=== PATIENT | male | born 1960 | race Caucasian/White ===

== ENCOUNTER 2020-08-21 00:25 | Emergency (ER) | payer MEDICAID, SELFPAY ==
[2020-08-21] VITALS (9 sets, daily range): BP systolic 118–143; BP diastolic 74–92; PULSE 71–90; RESP 18–28; TEMP 36.6–37.3; O2SAT 83–96; BMI 33.3
--- NOTE | ~2020-08-21 | XR_ITS ---
EXAMINATION: XR CHEST CLINICAL INFORMATION: Shortness of breath, hypoxia. Rule out asthma. COMPARISON: 06/01/2019 TECHNIQUE: Frontal view of the chest was obtained. FINDINGS: The lungs are well expanded. Diffuse bronchial wall thickening is noted. There is right upper lung airspace opacity. This is new from prior. No pleural effusion or pneumothorax. The cardiomediastinal silhouette is within normal limits. XR/XR chest 1V IMPRESSION: Bronchial wall thickening is present which can be seen in the setting of asthma. The right upper lobe consolidation is concerning for superimposed pneumonia. Follow-up to resolution.
[2020-08-21] MEDS: methylPREDNISolone Sod Succ 125 MG/2 ML VIAL IVPUSH (01:03)
[2020-08-21 01:12] LABS: Basophils Percent Auto 0.2 % (0-2); Hemoglobin 17.8 g/dl (14.0-18.0); Imm Gran Abs Auto 0.06 X10*3/uL (0.00-0.03); Imm Gran Pct Auto 0.3 % (0.0-0.4); Lymphocytes Absolute Auto 0.5 X10*3/uL (1.2-4.9); MANUAL DIFF FLAG SCAN; Mean Corpuscular HGB Conc 31.9 g/dl (31.0-36.0); Mean Corpuscular Hemoglobin 25.8 pg (27.0-33.0); Mean Corpuscular Volume 80.9 fL (80-98); Mean Platelet Volume 9.8 fL (9.4-12.4); Monocytes Absolute Auto 0.9 X10*3/uL (0.1-1.2); Monocytes Percent Auto 5.1 % (2-11); Neutrophils Absolute Auto 15.8 X10*3/uL (2.0-8.3); Neutrophils Percent Auto 91.4 % (45-73); Platelet Count 287 X10*3/uL (160-400); Red Cell Distribution Width 17.3 % (11.0-16.0); SCAN SMEAR FLAG 1; White Blood Count 17.3 X10*3/uL (4.8-10.8)
[2020-08-21 01:15] LABS: VBG Base Excess 12.1 mmol/L; VBG HCO3 39 mmol/L (22-26); VBG pCO2 54 mmHg; VBG pH 7.46 (7.32-7.43); VBG pO2 65 mmHg
[2020-08-21 01:15] LABS: Venous Blood Gas Refer to POC result
[2020-08-21] MEDS: Albuterol Sulfate (0.083%) 2.5 MG/3 ML VIAL.NEB 10 MG INHALE (01:20)
[2020-08-21 01:21] LABS: INTERNATIONAL NORM RATIO 1.7 (0.9-1.1); Prothrombin Time 19.7 SEC (10.8-13.0)
[2020-08-21 01:22] LABS: Partial Thromboplastin Time 41.7 SEC (24.1-38.0)
[2020-08-21 01:23] LABS: Hematocrit 55.8 % (42-52)
[2020-08-21 01:26] LABS: COVID-19 Test Negative (Negative); IDNOW Serial# 9DD0AD1C
[2020-08-21 01:29] LABS: Lactic Acid 1.5 mmol/L (0.5-2.0)
[2020-08-21 01:30] LABS: SLIDE REVIEW VERIFIED
[2020-08-21] MEDS: Magnesium Sulfate/H2O 2 GM/50 ML PIGGYBACK IV (01:32)
--- NOTE | 2020-08-21 01:34 | PC.NURSE ---
pt came in with sob, cough with moderate respiratory distress. Respiratory called, respiratory treatment. labs drawn, blood cultures collected. Pt is medicated per Jun. Covid swab collected. 2 IV lines placed. pt reports feeling better after breathing treatment.
[2020-08-21 01:35] LABS: Alanine Aminotransferase 14 U/L (0-40); Albumin Level 2.8 g/dL (3.5-5.0); Alkaline Phosphatase 262 U/L (39-117); Anion Gap 15 (12-20); Aspartate Amino Transferase 27 U/L (5-37); Bilirubin Total 3.1 mg/dL (0.0-1.0); Blood Urea Nitrogen 38 mg/dL (9-16); Carbon Dioxide 35 mmol/L (22-29); Chloride 87 mmol/L (96-108); Creatinine Clr Calc Pharmacy 77.9; Estimated Glomerular Filt Rate > 60; Glucose Random 180 mg/dL (60-115); Lipase 35 U/L (8-78); Potassium 3.9 mmol/L (3.3-5.1); Sodium 133 mmol/L (135-145); Total Protein 6.1 g/dL (6.5-8.0)
[2020-08-21 01:40] LABS: Troponin-I High Sensitivity 37.5 ng/L (<3.5-35.0)
--- NOTE | 2020-08-21 01:43 | ED_ITS ---
HPI - Asthma General Chief Complaint: Asthma Stated Complaint: Sob/Asthma Time Seen by Provider: 08/21/20 00:30 Source: patient Mode of arrival: ambulatory Limitations: language barrier (Patient is Moroccan-speaking only, the educational interpreter was used to obtain information) History of Present Illness HPI Narrative: 60-year-old male who presents emergency department for evaluation of cough, right-sided stabbing pain, fever and shortness of breath times 10 days. Patient states that he has a history of asthma. He states that his asthma has been getting progressively worse over the past 8-10 days. States this evening, he was very short of breath. He complains right-sided chest pain which is stabbing pain which is worse with breathing and coughing. He states that he has a cough which is nonproductive. He has subjective fever and chills at home. He denied nausea, vomiting or diarrhea. He denied myalgias or arthralgias. He states that he has not had a COVID-19 infection any did receive his 2nd COVID-19 vaccination 1 week prior. On presentation to the emergency department his O2 saturation was 80-83% on room air any appear to be in moderate respiratory distress. Related Data Allergies Allergy/AdvReac Type Severity Reaction Status Date / Time No Known Allergies Allergy Unverified 01/07/20 16:51 Review of Systems Review of Systems: Yes all other systems are reviewed and are negative [facility] Past Medical History [facility] Narrative: Patient has history of asthma and hypertension. The patient states that he smokes 1 pack of cigarettes per day times many years. Denies alcohol and drug use. Medical History Asthma HTN (hypertension) Social History Social History Alcohol intake: never Smoking Status: Current every day smoker Use of substances other than those prescribed or required for medical reasons: No Advance Directives: No Advance Directives Information Provided: No Physical Exam Vital Signs: Vital Signs: Last Vital Signs Temp 99.2 F 08/21/20 02:58 Pulse 74 08/21/20 04:33 Resp 18 08/21/20 04:02 BP 143/90 H 08/21/20 04:33 Pulse Ox 94 08/21/20 04:33 Body Mass Index 33.3 Const: General: cooperative and in distress moderate (Respiratory) Orientation/consciousness: oriented to person and oriented to place Limitations: no limitations HENMT: Head: Yes normal to inspection, Yes normocephalic and Yes atraumatic Ears: external ears normal General nose exam: Normal external nose present Face and sinus: Yes normal facial exam Mouth: Normal oral and palatal mucosa present Throat: Yes posterior oropharynx normal Eyes: Periorbital: periorbital findings normal Eyelids: Yes eyelids normal Conjunctivae: conjunctivae normal Sclerae: sclerae normal Corneas: corneas normal Pupils: Equal, round and reactive pupils present Direct Ophthalmoscopy: normal light reflex Neck: Neck: Yes full ROM, Yes no lymphadenopathy, Yes no meningeal signs, Yes trachea midline and Yes supple Chest: Chest palpation & inspection: normal inspection of the chest and normal palpation of entire chest wall Resp: Effort & Inspection: able to speak in complete sentences, labored, pursed lip breathing and tachypneic Auscultation: rhonchi (Diffuse) and wheezes (Diffuse) Cardio: Rate: regular rate Rhythm: regular rhythm Heart sounds: S1 normal heart sound present, S2 normal heart sound present and no murmurs GI: Inspection: Yes normal to inspection Palpation (GI): Soft to palpation, nontender, no guarding, not rigid and No hepatosplenomegaly present : General: Yes no CVA tenderness Back/Spine/Pelvis: Back: no CVA tenderness Cervical Spine: normal cervical lordosis Thoracic/Lumbar Spine: thoracic and lumbar spine normal to inspection Skin: Lesions: no lesions Rashes: no rashes Wounds: no wounds Neuro: General: oriented to person, oriented to place and no meningeal signs Cranial nerves: Yes CN's II-XII intact bilaterally and Yes Equal, round and reactive pupils present Cognition (Neuro): normal cognition Motor exam (neuro): 5/5 motor strength present throughout Extrem: General: Yes normal to inspection and Yes full ROM Psych: Appearance: well kempt Mental Status: mental status grossly normal Speech and movement: Normal speech and movement present Affect: normal affect Attitude: cooperative Thought process: Normal thought process present Thought content: Normal thought content present Course Course Course Narrative: 60-year-old male who presents emergency department for evaluation of 8-10 days of shortness of breath, subjective fever, chills, nonproductive cough and right-sided chest pain. On presentation the patient was in moderate respiratory distress with labored breathing, pursed lip breathing, tachypnea and O2 saturations of 80-83% on room air. The patient was placed on 5 L via nasal cannula with improvement of his O2 saturation to 93%. His lung exam revealed diffuse rhonchi and diffuse wheezing. He was ordered to get an hour long albuterol nebulizer, magnesium 2 g IV, and Solu-Medrol 125 mg IV. 0214: Laboratory evaluation revealed that he may be hemoconcentrated with an elevated H&H of 17.855.8 with an elevated BUN of 38 with a normal creatinine of 1.1, therefore I ordered normal saline IV x2 L. venous pH was 7.46 which is consistent with respiratory alkalosis secondary to his asthma exacerbation. The patient's INR was slightly elevated at 1.7, lactic acid was normal at 1.5. COVID-19 test was negative. Patient's 12 EKG revealed an old inferior NC with a right bundle-branch block. His 1st high sensitivity troponin was elevated at 37.5 (3.5-35) therefore I ordered a 3 hour troponin at 4:00 a.m. I suspect that the patient may have a type II myocardial injury secondary to his hypoxia. Chest x-ray was reviewed by me, the patient appears to have a right upper lobe infiltrate and a subtle right lower lobe infiltrate. Blood cultures were obtained. The patient was ordered to get ceftriaxone 1 g IV and azithromycin 500 mg IV. The patient did improve with the hour long albuterol nebulizer treatment and magnesium IV. The patient still remains hypoxic and requires oxygen therapy, I asked the respiratory therapist to put him on the lowest concentration of oxygen via Ventimask. 0229: The patient remained hypoxic on a Venti mask, he was placed on high-flow oxygen 100% at 60 liters/minute. His O2 saturation is 93%, I will check an ABG after 20 minutes of treatment with high-flow oxygen. 0258: ABG on high-flow oxygen 100%, 60 liters/minute: 7.47/50/96/36. The patient has respiratory alkalosis with relatively low PO2 given his high flow oxygen setting. The patient will be placed on CPAP and converted to BiPAP if needed. I am concerned that the patient may deteriorate and eventually required intubation. Also, we do not have any ICU beds at this time for CPAP/BiPAP 0408: I attempted to transfer the patient to [facility] in [place] and [facility] in [place] and neither facility had ICU beds. I did discuss the patient with the [place] transfer line and the patient was accepted at [facility] in [facility]. The patient is currently on CPAP pressure of 12, no PEEP and his O2 saturation is 97% and he is resting comfortably. The patient will be transferred by [facility] ambulance, the [facility] physician is . 0452: The patient's repeat 3 hour high sensitive troponin #2 was 35.7 compared to troponin #1. Of 37.5. This did not go up by greater than 50% suggesting that the patient has not had a significant myocardial injury and may have had a ?troponin leak ?type 2 type injury secondary to his pneumonia and hypoxia. I will discuss this with the receiving hospital. MDM - Asthma Lab Data Result diagrams: 08/21/20 01:04 08/21/20 01:04 Labs: Lab Results 08/21/20 08/21/20 08/21/20 Range/Units 01:04 01:04 01:04 WBC 17.3 H (4.8-10.8) X10*3/uL RBC 6.90 H (4.60-5.80) X10*6/uL Hgb 17.8 (14.0-18.0) g/dl Hct 55.8 H (42-52) % MCV 80.9 (80-98) fL MCH 25.8 L (27.0-33.0) pg MCHC 31.9 (31.0-36.0) g/dl RDW 17.3 H (11.0-16.0) % Plt Count 287 (160-400) X10*3/uL MPV 9.8 (9.4-12.4) fL Immature Gran % (Auto) 0.3 (0.0-0.4) % Neut % (Auto) 91.4 H (45-73) % Lymph % (Auto) 3.0 L (20-40) % [place] % (Auto) 5.1 (2-11) % Eos % (Auto) 0.0 (0-4) % Baso % (Auto) 0.2 (0-2) % Lymph # (Auto) 0.5 L (1.2-4.9) X10*3/uL [place] # (Auto) 0.9 (0.1-1.2) X10*3/uL Eos # (Auto) 0.0 (0.0-0.4) X10*3/uL Baso # (Auto) 0.0 (0.0-0.2) X10*3/uL Abs Immat Gran (auto) 0.06 H (0.00-0.03) X10*3/uL Absolute Neuts (auto) 15.8 H (2.0-8.3) X10*3/uL Absolute Nucleated RBC 0.000 (0.0-0.012) X10*3/uL Nucleated RBC % (auto) 0.0 (0.0-0.2) /100WBC Smear Tech's Comments VERIFIED PT 19.7 H (10.8-13.0) SEC INR 1.7 H (0.9-1.1) APTT 41.7 H (24.1-38.0) SEC O2 Saturation % ABG pH at Pt Temp (7.35-7.45) ABG pH (Temp Correct) (7.35-7.45) ABG pCO2 at Pt Temp (32-45) mmHg ABG pCO2 (Temp Corrct (32-45) mmHg ABG pO2 at Pt Temp (83-108) mmHg ABG pO2 (Temp Correct (83-108) ABG HCO3 (22-26) mmol/L ABG Base Excess (Actual) mmol/L VBG pH (7.32-7.43) VBG pCO2 mmHg VBG pO2 mmHg VBG HCO3 (22-26) mmol/L VBG O2 Saturation % VBG Base Excess mmol/L Sodium 133 L (135-145) mmol/L Potassium 3.9 (3.3-5.1) mmol/L Chloride 87 L (96-108) mmol/L Carbon Dioxide 35 H (22-29) mmol/L Anion Gap 15 (12-20) BUN 38 H (9-16) mg/dL Creatinine 1.18 (0.5-1.4) mg/dL Estim Creat Clear Calc 77.9 Estimated GFR > 60 Random Glucose 180 H (60-115) mg/dL Lactic Acid (0.5-2.0) mmol/L Calcium 8.0 L (8.4-10.2) mg/dL Total Bilirubin 3.1 H (0.0-1.0) mg/dL AST 27 (5-37) U/L ALT 14 (0-40) U/L Alkaline Phosphatase 262 H (39-117) U/L Troponin I High Sens (<3.5-35.0) ng/L Total Protein 6.1 L (6.5-8.0) g/dL Albumin 2.8 L (3.5-5.0) g/dL Lipase 35 (8-78) U/L COVID-19 (DAVI) (Negative) COVID-19 Clin Com 08/21/20 08/21/20 08/21/20 Range/Units 01:04 01:04 01:04 WBC (4.8-10.8) X10*3/uL RBC (4.60-5.80) X10*6/uL Hgb (14.0-18.0) g/dl Hct (42-52) % MCV (80-98) fL MCH (27.0-33.0) pg MCHC (31.0-36.0) g/dl RDW (11.0-16.0) % Plt Count (160-400) X10*3/uL MPV (9.4-12.4) fL Immature Gran % (Auto) (0.0-0.4) % Neut % (Auto) (45-73) % Lymph % (Auto) (20-40) % [place] % (Auto) (2-11) % Eos % (Auto) (0-4) % Baso % (Auto) (0-2) % Lymph # (Auto) (1.2-4.9) X10*3/uL [place] # (Auto) (0.1-1.2) X10*3/uL Eos # (Auto) (0.0-0.4) X10*3/uL Baso # (Auto) (0.0-0.2) X10*3/uL Abs Immat Gran (auto) (0.00-0.03) X10*3/uL Absolute Neuts (auto) (2.0-8.3) X10*3/uL Absolute Nucleated RBC (0.0-0.012) X10*3/uL Nucleated RBC % (auto) (0.0-0.2) /100WBC Smear Tech's Comments PT (10.8-13.0) SEC INR (0.9-1.1) APTT (24.1-38.0) SEC O2 Saturation % ABG pH at Pt Temp (7.35-7.45) ABG pH (Temp Correct) (7.35-7.45) ABG pCO2 at Pt Temp (32-45) mmHg ABG pCO2 (Temp Corrct (32-45) mmHg ABG pO2 at Pt Temp (83-108) mmHg ABG pO2 (Temp Correct (83-108) ABG HCO3 (22-26) mmol/L ABG Base Excess (Actual) mmol/L VBG pH (7.32-7.43) VBG pCO2 mmHg VBG pO2 mmHg VBG HCO3 (22-26) mmol/L VBG O2 Saturation % VBG Base Excess mmol/L Sodium (135-145) mmol/L Potassium (3.3-5.1) mmol/L Chloride (96-108) mmol/L Carbon Dioxide (22-29) mmol/L Anion Gap (12-20) BUN (9-16) mg/dL Creatinine (0.5-1.4) mg/dL Estim Creat Clear Calc Estimated GFR Random Glucose (60-115) mg/dL Lactic Acid 1.5 (0.5-2.0) mmol/L Calcium (8.4-10.2) mg/dL Total Bilirubin (0.0-1.0) mg/dL AST (5-37) U/L ALT (0-40) U/L Alkaline Phosphatase (39-117) U/L Troponin I High Sens 37.5 H (<3.5-35.0) ng/L Total Protein (6.5-8.0) g/dL Albumin (3.5-5.0) g/dL Lipase (8-78) U/L COVID-19 (ADVI) Negative (Negative) COVID-19 Clin Com See Note 08/21/20 08/21/20 08/21/20 Range/Units 01:08 02:58 04:10 WBC (4.8-10.8) X10*3/uL RBC (4.60-5.80) X10*6/uL Hgb (14.0-18.0) g/dl Hct (42-52) % MCV (80-98) fL MCH (27.0-33.0) pg MCHC (31.0-36.0) g/dl RDW (11.0-16.0) % Plt Count (160-400) X10*3/uL MPV (9.4-12.4) fL Immature Gran % (Auto) (0.0-0.4) % Neut % (Auto) (45-73) % Lymph % (Auto) (20-40) % [place] % (Auto) (2-11) % Eos % (Auto) (0-4) % Baso % (Auto) (0-2) % Lymph # (Auto) (1.2-4.9) X10*3/uL [place] # (Auto) (0.1-1.2) X10*3/uL Eos # (Auto) (0.0-0.4) X10*3/uL Baso # (Auto) (0.0-0.2) X10*3/uL Abs Immat Gran (auto) (0.00-0.03) X10*3/uL Absolute Neuts (auto) (2.0-8.3) X10*3/uL Absolute Nucleated RBC (0.0-0.012) X10*3/uL Nucleated RBC % (auto) (0.0-0.2) /100WBC Smear Tech's Comments PT (10.8-13.0) SEC INR (0.9-1.1) APTT (24.1-38.0) SEC O2 Saturation 98.0 % ABG pH at Pt Temp 7.47 H (7.35-7.45) ABG pH (Temp Correct) 7.47 H (7.35-7.45) ABG pCO2 at Pt Temp 50 H (32-45) mmHg ABG pCO2 (Temp Corrct 50 H (32-45) mmHg ABG pO2 at Pt Temp 94 (83-108) mmHg ABG pO2 (Temp Correct 96 (83-108) ABG HCO3 36 H (22-26) mmol/L ABG Base Excess (Actual) 11.0 mmol/L VBG pH 7.46 H (7.32-7.43) VBG pCO2 54 mmHg VBG pO2 65 mmHg VBG HCO3 39 H (22-26) mmol/L VBG O2 Saturation 91.0 % VBG Base Excess 12.1 mmol/L Sodium (135-145) mmol/L Potassium (3.3-5.1) mmol/L Chloride (96-108) mmol/L Carbon Dioxide (22-29) mmol/L Anion Gap (12-20) BUN (9-16) mg/dL Creatinine (0.5-1.4) mg/dL Estim Creat Clear Calc Estimated GFR Random Glucose (60-115) mg/dL Lactic Acid (0.5-2.0) mmol/L Calcium (8.4-10.2) mg/dL Total Bilirubin (0.0-1.0) mg/dL AST (5-37) U/L ALT (0-40) U/L Alkaline Phosphatase (39-117) U/L Troponin I High Sens 35.5 H (<3.5-35.0) ng/L Total Protein (6.5-8.0) g/dL Albumin (3.5-5.0) g/dL Lipase (8-78) U/L COVID-19 (DAVI) (Negative) COVID-19 Clin Com Critical Care Time Critical Care Time Critical Care Time: Yes Total Critical Care Time: 120 Attestation: Critical Care: The patient was critically ill with a high probability of imminent or life threatening deterioration. I spent greater than 30 minutes of discontinuous time evaluating the patient,delivering critical care at the bedside, discussing and evaluating pertinent data with consultants. Critical care time does not include time spent performing separately billable procedures or teaching. Total time spent performing critical care was 120 minutes.
--- NOTE | 2020-08-21 01:44 | PC.NURSE ---
Trop is 37.5 provider is aware.
--- NOTE | 2020-08-21 01:51 | ECG_ITS ---
Test Reason : CHEST PAIN Blood Pressure : / mmHG Vent. 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
[2020-08-21] MEDS: 0.9 % Sodium Chloride 1,000 ML 999 ML IV ×2 (02:33→02:37)
[2020-08-21] MEDS: cefTRIAXone sodium 1 GM in 0.9 % Sodium Chloride 50 ML IV (02:35)
[2020-08-21] MEDS: Azithromycin 500 MG in 0.9 % Sodium Chloride 250 ML 125 MG IV (02:38)
[2020-08-21 03:05] LABS: ABG Refer to POC result
[2020-08-21 03:05] LABS: ABG HCO3 36 mmol/L (22-26); ABG pCO2 50 mmHg (32-45); ABG pCO2 TC 50 mmHg (32-45); ABG pH 7.47 (7.35-7.45); ABG pH TC 7.47 (7.35-7.45); ABG pO2 94 mmHg (83-108); ABG pO2 TC 96 (83-108)
--- NOTE | 2020-08-21 03:40 | PC.NURSE ---
pt being change on cpap. plan is for pt to be transferred to another hospital facility.
--- NOTE | 2020-08-21 04:18 | PC.NURSE ---
Call report to [facility] -[phone] ex [phone]
[2020-08-21 04:40] LABS: Troponin-I High Sensitivity 35.5 ng/L (<3.5-35.0)
[2020-08-24 15:48] VITALS: O2SAT 93
== END 2020-08-21 07:36 | disposition short-term general hospital (02) ==
PROVIDERS: Emergency Provider Emergency Medicine Emergency Medical Services
DX: J18.9 Pneumonia, unspecified organism (principal); R06.03 Acute respiratory distress; R09.02 Hypoxemia; E87.3 Alkalosis; R07.1 Chest pain on breathing; R06.02 Shortness of breath; Z20.822 Contact with and (suspected) exposure to COVID-19; J45.909 Unspecified asthma, uncomplicated; I10 Essential (primary) hypertension; F17.210 Nicotine dependence, cigarettes, uncomplicated
CPT/HCPCS: 36415; 71045; 80053; 83605; 83690; 84484; 85025; 85610; 85730; 87040; 87077; 87147; 87186; 87205; 87635; 93005; 94640; 94644; 94660; 96361; 96365; 96366; 96368; 96374; 96375; 99285; 99291; 99292; J0456; J0696; J2930; J3475

== ENCOUNTER 2020-10-16 09:55 | Inpatient (IN) | payer MEDICAID, SELFPAY ==
[2020-10-16] VITALS (21 sets, daily range): BP systolic 145–183; BP diastolic 75–101; PULSE 60–90; RESP 10–22; TEMP 36.7–37.7; O2SAT 60–100; BMI 23.7; BMI 25.9
--- NOTE | ~2020-10-16 | XR_ITS ---
EXAMINATION: XR CHEST CLINICAL INFORMATION: Dyspnea. COMPARISON: Chest 08/21/2020. TECHNIQUE: Frontal view of the chest was obtained. FINDINGS: Lungs are expanded with patchy scattered opacities in both lower lobes and infrahilar regions as well as right upper lobe question infiltrate. There is no pleural effusion. The heart size and perivascular is normal. There is moderate spondylosis dorsal spine. No lytic process. XR/XR chest 1V IMPRESSION: Diffuse bilateral patchy opacities in both lower lobes, and frontal region right upper lobe, question developing infiltrates.
--- NOTE | 2020-10-16 10:06 | ECG_ITS ---
Test Reason : SOB Blood Pressure : / mmHG Vent. 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
--- NOTE | 2020-10-16 10:07 | ED.SOB ---
HPI - SOB/Dyspnea General Chief Complaint: Dyspnea Stated Complaint: ASTHMA LEG PAIN Time Seen by Provider: 10/16/20 10:05 Source: patient and old records reviewed Mode of arrival: ambulatory (came in talking on his cell phone with sats in the 60s) Limitations: other (poor historian) History of Present Illness HPI Narrative: was seen here 08/21 for same transferred to [facility] he states he left AMA from there, records requested. MD elicited complaint: shortness of breath (LE edema) and asthma attack Pertinent past history: asthma, congestive heart failure and pneumonia Onset (ago): month(s) (1) Context: other (has been sick for one month my doctor has been bugging me to come in. admits to snorting cocaine yesterday) Timing: progressively worsening Severity: severe Exacerbating factors: lying flat and exertion Relieving factors: rest Known history of: asthma, congestive heart failure and recurrent pneumonia Associated symptoms: cough, wheezing and orthopnea Treatment prior to arrival: bronchodilator Related Data Allergies Allergy/AdvReac Type Severity Reaction Status Date / Time No Known Allergies Allergy Unverified 01/07/20 16:51 Review of Systems Review of Systems: Constitutional : No Fever, No Chills ENT/Mouth : No sore throat, No Rhinorrhea, No Swallowing Difficulty Eyes: No Eye Pain, No Swelling, No Redness Cardiovascular : No Chest Pain, positive SOB, pos Orthopnea, positive Edema Respiratory : pos Cough, No Sputum, pos Wheezing, positive dyspnea Gastrointestinal : No Nausea, No Vomiting, No Diarrhea, No abdominal Pain, No Hematochezia, No Melena Genitourinary : No Dysuria, No Urinary Frequency, No Hematuria Musculoskeletal : No joint pain, No Myalgias Skin : No Skin Lesions, No rash Neuro : pos Weakness, No Numbness, No Dizziness, No Headache Psych : No Anxiety/Panic, No Depression Heme/Lymph: No Bruising, No Lymphadenopathy Endocrine : No Polyuria, No Polydipsia All other systems reviewed and are negative FORMERLY [facility], [facility] Past Medical History Attestation statement: The following information was validated with the patient. Medical History Asthma CHF (congestive heart failure) HTN (hypertension) Pneumonia Substance abuse Social History Social History (Updated 10/16/20 @ 10:17 by Brittany Josh, DO) Alcohol intake: never Patient Tobacco Use Status: Current everyday Tobacco user Use of substances other than those prescribed or required for medical reasons: Yes Substance Use Type: Crack/Cocaine Substance Use Frequency: Occasionally Advance Directives: No Advance Directives Information Provided: No Physical Exam Vital Signs: Vital Signs: Last Vital Signs Temp 98.6 F 10/16/20 11:02 Pulse 86 10/16/20 11:02 Resp 14 10/16/20 14:01 BP 145/75 H 10/16/20 10:05 Pulse Ox 97 10/16/20 11:02 Body Mass Index 23.7 Appearance: Alert. Oriented X3. No acute distress. He is talking on his cell phone and somehow walked in with a sat of 60% Eyes: Pupils equal, round and reactive to light. ENT: Pharynx normal. Dusky lips Neck: Normal inspection. Neck supple. CVS: Normal heart rate and rhythm. Pulses normal. Respiratory: No respiratory distress. Breath sounds diminished throughout with noticeable rales as well Abdomen: Soft and non-tender. Skin: Skin warm and dry. Normal skin color. Normal skin turgor. Extremities: 2+ pitting bilateral lower extremity edema. No calf ttp Neuro: Oriented X 3. No motor deficit. No sensory deficit. Course Course Course Narrative: placed on bipap on arrival patient doing better, will attempt trial off after 2 hours on bipap compensated ABG - desaturated and appears sleepy after removal will try low dose narcan, he has pinpoint pupils. 93% on 3L NC - doing better, no resp distress, yawning more awake after 0.2mg narcan patient desaturated back to 84% will place back on bipap and discuss with ICU will place on high flow in the ED and observe if he is stable can go to floors- Dr. Olmedo aware and involved. high flow placed at [address] Coffey to reasess patient and admit suspect patient used in the ED had heroin on his person, he is now difficult to wake up 2pm repeat 1mg narcan ordered ICU to admit patient MDM - SOB/Dyspnea MDM Narrative Medical decision making narrative: 60 yo male hx of CHF, asthma, HTN, substance abuse pneumonia, prior respiratory failure in August had ICU admission for multifocal pneumonia he admits to snorting cocaine yesterday comes in with c/o LE edema and dyspnea x 1 month at this time he looks shockingly well with sats in the 60s hx of presenting in the past with sats in the 80s, placed on bipap immediately with hour long 10mg neb, IV steroids, IV magnesium, IV lasix, empiric antibiotics given hx of pneumonia, he denies IVDA, denies CP - pneumonia vs asthma vs CHF likely, seems unusually to have PE given lack of chest pain and notes his breathing has been like this for an entire month Lab Data Result diagrams: 10/16/20 10:23 10/16/20 10:23 Labs: Lab Results 10/16/20 10/16/20 10/16/20 Range/Units 10:23 10:23 10:23 WBC 6.4 (4.8-10.8) X10*3/uL RBC 5.71 (4.60-5.80) X10*6/uL Hgb 14.8 (14.0-18.0) g/dl Hct 49.2 (42-52) % MCV 86.2 (80-98) fL MCH 25.9 L (27.0-33.0) pg MCHC 30.1 L (31.0-36.0) g/dl RDW 19.6 H (11.0-16.0) % Plt Count 199 D (160-400) X10*3/uL MPV 9.8 (9.4-12.4) fL Immature Gran % (Auto) 0.2 (0.0-0.4) % Neut % (Auto) 69.4 (45-73) % Lymph % (Auto) 13.8 L (20-40) % [place] % (Auto) 7.3 (2-11) % Eos % (Auto) 9.0 H (0-4) % Baso % (Auto) 0.3 (0-2) % Lymph # (Auto) 0.9 L (1.2-4.9) X10*3/uL [place] # (Auto) 0.5 (0.1-1.2) X10*3/uL Eos # (Auto) 0.6 H (0.0-0.4) X10*3/uL Baso # (Auto) 0.0 (0.0-0.2) X10*3/uL Abs Immat Gran (auto) 0.01 (0.00-0.03) X10*3/uL Absolute Neuts (auto) 4.5 (2.0-8.3) X10*3/uL Absolute Nucleated RBC 0.000 (0.0-0.012) X10*3/uL Nucleated RBC % (auto) 0.0 (0.0-0.2) /100WBC PT (10.8-13.0) SEC INR (0.9-1.1) APTT (24.1-38.0) SEC VBG pH (7.32-7.43) VBG pCO2 mmHg VBG pO2 mmHg VBG HCO3 (22-26) mmol/L VBG O2 Saturation % VBG Base Excess mmol/L Sodium 143 (135-145) mmol/L Potassium 3.8 (3.3-5.1) mmol/L Chloride 94 L (96-108) mmol/L Carbon Dioxide 42 H* (22-29) mmol/L Anion Gap 11 L (12-20) BUN 34 H (9-16) mg/dL Creatinine 1.74 H (0.5-1.4) mg/dL Estim Creat Clear Calc 52.2 Estimated GFR 41 Random Glucose 148 H (60-115) mg/dL Lactic Acid 0.9 (0.5-2.0) mmol/L Calcium 8.4 (8.4-10.2) mg/dL Magnesium 2.3 (1.6-2.6) mg/dL Total Bilirubin 1.0 (0.0-1.0) mg/dL Direct Bilirubin 0.5 (0.0-0.5) mg/dL AST 37 (5-37) U/L ALT 17 (0-40) U/L Alkaline Phosphatase 171 H D (39-117) U/L Troponin I High Sens (<3.5-35.0) ng/L B-Natriuretic Peptide (<100) pg/mL Total Protein 6.7 (6.5-8.0) g/dL Albumin 3.4 L D (3.5-5.0) g/dL Lipase 26 (8-78) U/L Urine Opiates Screen (Not Detect) Ur Barbiturates Screen (Not Detect) Ur Phencyclidine Scrn (Not Detect) Ur Amphetamines Screen (Not Detect) U Benzodiazepines Scrn (Not Detect) Urine Cocaine Screen (Not Detect) U Marijuana (THC) Screen (Not Detect) COVID-19 (DAVI) (Negative) COVID-19 Clin Com 10/16/20 10/16/20 10/16/20 Range/Units 10:23 10:23 10:23 WBC (4.8-10.8) X10*3/uL RBC (4.60-5.80) X10*6/uL Hgb (14.0-18.0) g/dl Hct (42-52) % MCV (80-98) fL MCH (27.0-33.0) pg MCHC (31.0-36.0) g/dl RDW (11.0-16.0) % Plt Count (160-400) X10*3/uL MPV (9.4-12.4) fL Immature Gran % (Auto) (0.0-0.4) % Neut % (Auto) (45-73) % Lymph % (Auto) (20-40) % [place] % (Auto) (2-11) % Eos % (Auto) (0-4) % Baso % (Auto) (0-2) % Lymph # (Auto) (1.2-4.9) X10*3/uL [place] # (Auto) (0.1-1.2) X10*3/uL Eos # (Auto) (0.0-0.4) X10*3/uL Baso # (Auto) (0.0-0.2) X10*3/uL Abs Immat Gran (auto) (0.00-0.03) X10*3/uL Absolute Neuts (auto) (2.0-8.3) X10*3/uL Absolute Nucleated RBC (0.0-0.012) X10*3/uL Nucleated RBC % (auto) (0.0-0.2) /100WBC PT 14.4 H D (10.8-13.0) SEC INR 1.2 H (0.9-1.1) APTT 37.1 (24.1-38.0) SEC VBG pH (7.32-7.43) VBG pCO2 mmHg VBG pO2 mmHg VBG HCO3 (22-26) mmol/L VBG O2 Saturation % VBG Base Excess mmol/L Sodium (135-145) mmol/L Potassium (3.3-5.1) mmol/L Chloride (96-108) mmol/L Carbon Dioxide (22-29) mmol/L Anion Gap (12-20) BUN (9-16) mg/dL Creatinine (0.5-1.4) mg/dL Estim Creat Clear Calc Estimated GFR Random Glucose (60-115) mg/dL Lactic Acid (0.5-2.0) mmol/L Calcium (8.4-10.2) mg/dL Magnesium (1.6-2.6) mg/dL Total Bilirubin (0.0-1.0) mg/dL Direct Bilirubin (0.0-0.5) mg/dL AST (5-37) U/L ALT (0-40) U/L Alkaline Phosphatase (39-117) U/L Troponin I High Sens 27.9 (<3.5-35.0) ng/L B-Natriuretic Peptide 1003 H (<100) pg/mL Total Protein (6.5-8.0) g/dL Albumin (3.5-5.0) g/dL Lipase (8-78) U/L Urine Opiates Screen (Not Detect) Ur Barbiturates Screen (Not Detect) Ur Phencyclidine Scrn (Not Detect) Ur Amphetamines Screen (Not Detect) U Benzodiazepines Scrn (Not Detect) Urine Cocaine Screen (Not Detect) U Marijuana (THC) Screen (Not Detect) COVID-19 (DAVI) (Negative) COVID-19 Clin Com 10/16/20 10/16/20 10/16/20 Range/Units 10:25 10:33 10:58 WBC (4.8-10.8) X10*3/uL RBC (4.60-5.80) X10*6/uL Hgb (14.0-18.0) g/dl Hct (42-52) % MCV (80-98) fL MCH (27.0-33.0) pg MCHC (31.0-36.0) g/dl RDW (11.0-16.0) % Plt Count (160-400) X10*3/uL MPV (9.4-12.4) fL Immature Gran % (Auto) (0.0-0.4) % Neut % (Auto) (45-73) % Lymph % (Auto) (20-40) % [place] % (Auto) (2-11) % Eos % (Auto) (0-4) % Baso % (Auto) (0-2) % Lymph # (Auto) (1.2-4.9) X10*3/uL [place] # (Auto) (0.1-1.2) X10*3/uL Eos # (Auto) (0.0-0.4) X10*3/uL Baso # (Auto) (0.0-0.2) X10*3/uL Abs Immat Gran (auto) (0.00-0.03) X10*3/uL Absolute Neuts (auto) (2.0-8.3) X10*3/uL Absolute Nucleated RBC (0.0-0.012) X10*3/uL Nucleated RBC % (auto) (0.0-0.2) /100WBC PT (10.8-13.0) SEC INR (0.9-1.1) APTT (24.1-38.0) SEC VBG pH 7.38 (7.32-7.43) VBG pCO2 85 mmHg VBG pO2 223 mmHg VBG HCO3 50 H (22-26) mmol/L VBG O2 Saturation 100.0 % VBG Base Excess 19.1 mmol/L Sodium (135-145) mmol/L Potassium (3.3-5.1) mmol/L Chloride (96-108) mmol/L Carbon Dioxide (22-29) mmol/L Anion Gap (12-20) BUN (9-16) mg/dL Creatinine (0.5-1.4) mg/dL Estim Creat Clear Calc Estimated GFR Random Glucose (60-115) mg/dL Lactic Acid (0.5-2.0) mmol/L Calcium (8.4-10.2) mg/dL Magnesium (1.6-2.6) mg/dL Total Bilirubin (0.0-1.0) mg/dL Direct Bilirubin (0.0-0.5) mg/dL AST (5-37) U/L ALT (0-40) U/L Alkaline Phosphatase (39-117) U/L Troponin I High Sens (<3.5-35.0) ng/L B-Natriuretic Peptide (<100) pg/mL Total Protein (6.5-8.0) g/dL Albumin (3.5-5.0) g/dL Lipase (8-78) U/L Urine Opiates Screen POSITIVE H (Not Detect) Ur Barbiturates Screen Not Detected (Not Detect) Ur Phencyclidine Scrn Not Detected (Not Detect) Ur Amphetamines Screen Not Detected (Not Detect) U Benzodiazepines Scrn Not Detected (Not Detect) Urine Cocaine Screen POSITIVE H (Not Detect) U Marijuana (THC) Screen POSITIVE H (Not Detect) COVID-19 (DAVI) Negative (Negative) COVID-19 Clin Com See Note ECG Data Attestation: I personally reviewed and interpreted this ECG as follows: ECG interpretation date: 10/16/20 ECG interpretation time: 10:20 Interpretation: Rate: 87 Rhythm: NSR with PACs [place]: left Normal P waves. Normal MARTITA. RBBB ST T wave : no Lexa q waves in inf leads qTC: normal prior studies: no change in August 2020 The study has been interpreted contemporaneously by me. . Critical Care Time Critical Care Time Critical Care Time: Yes Total Critical Care Time: 60 Attestation: vent management, review of records, interventions, hour long neb, medical consult I attest to this time spent taking care of the patient Discharge Plan Discharge Clinical Impression: Polysubstance abuse Asthma with exacerbation Qualifiers: Asthma severity: moderate Asthma persistence: persistent Qualified Code(s): J45.41 - Moderate persistent asthma with (acute) exacerbation Congestive heart failure Qualifiers: Heart failure type: unspecified Heart failure chronicity: acute Qualified Code(s): I50.9 - Heart failure, unspecified Respiratory failure with hypoxia Qualifiers: Chronicity: acute on chronic Qualified Code(s): J96.21 - Acute and chronic respiratory failure with hypoxia Opiate overdose Qualifiers: Encounter type: initial encounter Injury intent: accidental or unintentional Qualified Code(s): T40.601A - Poisoning by unspecified narcotics, accidental (unintentional), initial encounter Patient Disposition: Admitted As Inpatient
[2020-10-16] MEDS: methylPREDNISolone Sod Succ 125 MG/2 ML VIAL IVPUSH (10:30)
[2020-10-16] MEDS: Magnesium Sulfate/H2O 2 GM/50 ML PIGGYBACK IV (10:30)
[2020-10-16] MEDS: Furosemide 40 MG/4 ML VIAL IVPUSH ×2 (10:30→18:10)
[2020-10-16 10:32] LABS: MANUAL DIFF FLAG NO
[2020-10-16 10:32] LABS: VBG Base Excess 19.1 mmol/L; VBG HCO3 50 mmol/L (22-26); VBG pCO2 85 mmHg; VBG pH 7.38 (7.32-7.43); VBG pO2 223 mmHg
[2020-10-16 10:33] LABS: Basophils Percent Auto 0.3 % (0-2); Eosinophils Absolute Auto 0.6 X10*3/uL (0.0-0.4); Hematocrit 49.2 % (42-52); Hemoglobin 14.8 g/dl (14.0-18.0); Imm Gran Abs Auto 0.01 X10*3/uL (0.00-0.03); Imm Gran Pct Auto 0.2 % (0.0-0.4); Lymphocytes Absolute Auto 0.9 X10*3/uL (1.2-4.9); Lymphocytes Percent Auto 13.8 % (20-40); Mean Corpuscular HGB Conc 30.1 g/dl (31.0-36.0); Mean Corpuscular Hemoglobin 25.9 pg (27.0-33.0); Mean Corpuscular Volume 86.2 fL (80-98); Mean Platelet Volume 9.8 fL (9.4-12.4); Monocytes Absolute Auto 0.5 X10*3/uL (0.1-1.2); Monocytes Percent Auto 7.3 % (2-11); Neutrophils Absolute Auto 4.5 X10*3/uL (2.0-8.3); Neutrophils Percent Auto 69.4 % (45-73); Platelet Count 199 X10*3/uL (160-400); Red Blood Count 5.71 X10*6/uL (4.60-5.80); Red Cell Distribution Width 19.6 % (11.0-16.0); White Blood Count 6.4 X10*3/uL (4.8-10.8)
[2020-10-16] MEDS: Albuterol Sulfate (0.083%) 2.5 MG/3 ML VIAL.NEB 10 MG INHALE (10:37)
[2020-10-16 10:42] LABS: INTERNATIONAL NORM RATIO 1.2 (0.9-1.1); Prothrombin Time 14.4 SEC (10.8-13.0)
[2020-10-16 10:44] LABS: Partial Thromboplastin Time 37.1 SEC (24.1-38.0)
[2020-10-16 10:51] LABS: Lactic Acid 0.9 mmol/L (0.5-2.0)
[2020-10-16 10:59] LABS: B Type Natriuretic Peptide 1003 pg/mL (<100); Troponin-I High Sensitivity 27.9 ng/L (<3.5-35.0)
[2020-10-16 10:59] LABS: COVID-19 Test Negative (Negative)
[2020-10-16] MEDS: Piperacillin Sodium/Tazobactam 4.5 GM in 0.9 % Sodium Chloride 100 ML IV (10:59)
[2020-10-16 11:01] LABS: Alanine Aminotransferase 17 U/L (0-40); Albumin Level 3.4 g/dL (3.5-5.0); Alkaline Phosphatase 171 U/L (39-117); Anion Gap 11 (12-20); Aspartate Amino Transferase 37 U/L (5-37); Bilirubin Direct 0.5 mg/dL (0.0-0.5); Blood Urea Nitrogen 34 mg/dL (9-16); Calcium 8.4 mg/dL (8.4-10.2); Carbon Dioxide 42 mmol/L (22-29); Chloride 94 mmol/L (96-108); Creatinine Clr Calc Pharmacy 52.2; Estimated Glomerular Filt Rate 41; Glucose Random 148 mg/dL (60-115); Lipase 26 U/L (8-78); Magnesium 2.3 mg/dL (1.6-2.6); Potassium 3.8 mmol/L (3.3-5.1); Sodium 143 mmol/L (135-145); Total Protein 6.7 g/dL (6.5-8.0)
[2020-10-16 11:02] LABS: Venous Blood Gas Refer to POC result
[2020-10-16] MEDS: vancomycin HCL 1,000 MG in 0.9 % Sodium Chloride 250 ML 270 MG IV (12:00)
[2020-10-16] MEDS: Naloxone HCl 0.4 MG/ML VIAL IVPUSH ×2 (12:10→13:18)
[2020-10-16 12:31] LABS: Amphetamine Screen Urine Not Detected (Not Detect); Barbiturates, Urine Not Detected (Not Detect); Benzodiazepines Screen Urine Not Detected (Not Detect); Cannabinoid Screen Urine POSITIVE (Not Detect); Cocaine Screen Urine POSITIVE (Not Detect); Opiate Screen Urine POSITIVE (Not Detect); Phencyclidine Screen Urine Not Detected (Not Detect)
--- NOTE | 2020-10-16 12:38 | PC.NURSE ---
pt placed back on bipap d/t low o2 sat on nasal cannula. pt repositioned in stretcher, sitting upright. able to move on own.
[2020-10-16] MEDS: Naloxone HCl 2 MG/2 ML SYRINGE 1 MG IVPUSH (14:05)
--- NOTE | 2020-10-16 14:20 | PM.CCHP ---
History of Present Illness Date of Service: 10/16/20 Chief Complaint: shortness of breath and lower extremity edema 60-year-old gentleman with underlying history of polysubstance abuse including cocaine heparin, congestive heart failure, asthma, hypertension admitted on 10/16/2020 with acute hypoxic respiratory failure and toxic encephalopathy secondary to exacerbation of underlying congestive heart failure and polysubstance abuse. Patient initially required BiPAP support in the emergency room and then was titrated down to high-flow nasal cannula. In the emergency room he was noted to have waxing and waning encephalopathy likely secondary to surreptitious heroin use in ED. He was started on IV diuresis and admitted to intensive care unit. Review of Systems Review of Systems: Yes Unobtainable due to mental status PMFSH Past Medical History Medical History Asthma CHF (congestive heart failure) HTN (hypertension) Pneumonia Substance abuse Social History Social History (Updated 10/16/20 @ 10:17 by Brittany Moreno DO) Alcohol intake: never Patient Tobacco Use Status: Current everyday Tobacco user Use of substances other than those prescribed or required for medical reasons: Yes Substance Use Type: Crack/Cocaine Substance Use Frequency: Occasionally Advance Directives: No Advance Directives Information Provided: No Meds Allergies Allergy/AdvReac Type Severity Reaction Status Date / Time No Known Allergies Allergy Unverified 01/07/20 16:51 Active Medications: Current Medications Generic Name Dose Route Start Last Admin Trade Name Freq PRN Reason Stop Dose Admin Acetaminophen 650 mg 10/16/20 14:09 Acetaminophen 325 Mg Tablet PO Q6H PRN Pain, Mild (Pain Scale 1-3) Acetazolamide 375 mg 10/16/20 14:15 Acetazolamide Sodium 500 Mg Vial IVPUSH 10/19/20 02:16 Q12H LELA Albuterol/Ipratropium 3 ml 10/16/20 18:00 Albuterol/Iprat 2.5/0.5mg 3 Ml Ampul.Neb INHALE RQ6H LELA Furosemide 40 mg 10/16/20 19:00 Furosemide 40 Mg/4 Ml Vial IVPUSH 10/16/20 19:01 BID ONE Protocol Heparin Sodium (Porcine) 5,000 unit 10/16/20 14:15 Heparin Sodium,Porcine 5,000 Unit/Ml Vial SUBCUT Q8H LELA Albumin Human 100 mls @ 100 mls/hr 10/16/20 14:15 Kedbumin 25 % IV 10/16/20 21:14 Q6H LELA Potassium Chloride 10 meq in 100 mls @ 100 mls/hr 10/16/20 14:15 IV 10/16/20 18:14 Q1H LELA Ondansetron HCl 4 mg 10/16/20 14:09 Ondansetron Hcl 4 Mg/2 Ml Vial IVPUSH Q8H PRN Nausea Physical Exam Vital Signs: Vital Signs: Last Vital Signs Temp 98.6 F 10/16/20 11:02 Pulse 86 10/16/20 11:02 Resp 14 10/16/20 14:01 BP 145/75 H 10/16/20 10:05 Pulse Ox 97 10/16/20 11:02 Body Mass Index 23.7 Const: General: no acute distress, intoxicated appearing and lethargic ( Arousable to painful stimuli) Orientation/consciousness: lethargic ( Arousable to painful stimuli) Eyes: Sclerae: sclerae normal EOM: EOMs intact bilaterally Neck: Neck: Yes no lymphadenopathy, Yes trachea midline and Yes supple Resp: Effort & Inspection: normal respiratory effort and no respiratory distress Auscultation: crackles ( diffuse bilateral) Cardio: Rate: regular rate Rhythm: regular rhythm Heart sounds: no gallops, no murmurs and no rubs GI: Palpation (GI): Soft to palpation and Other GI palpation findings present ( Nontender) Auscultation: normal bowel sounds Extrem: General: No clubbing, No cyanosis and Yes pedal edema ( 2+ bilateral) Results Labs CBC and Chem 7: 10/16/20 10:23 10/16/20 10:23 Labs: Laboratory Results - last 24 hr 10/16/20 10/16/20 10/16/20 10:23 10:23 10:23 MCV 86.2 MCH 25.9 L MCHC 30.1 L RDW 19.6 H Plt Count 199 D MPV 9.8 Immature Gran % (Auto) 0.2 Neut % (Auto) 69.4 Lymph % (Auto) 13.8 L [place] % (Auto) 7.3 Eos % (Auto) 9.0 H Baso % (Auto) 0.3 Lymph # (Auto) 0.9 L [place] # (Auto) 0.5 Eos # (Auto) 0.6 H Baso # (Auto) 0.0 Abs Immat Gran (auto) 0.01 Absolute Neuts (auto) 4.5 Absolute Nucleated RBC 0.000 Nucleated RBC % (auto) 0.0 PT INR APTT VBG pH VBG pCO2 VBG pO2 VBG HCO3 VBG O2 Saturation VBG Base Excess Anion Gap 11 L Estim Creat Clear Calc 52.2 Estimated GFR 41 Random Glucose 148 H Lactic Acid 0.9 Calcium 8.4 Magnesium 2.3 Total Bilirubin 1.0 Direct Bilirubin 0.5 AST 37 ALT 17 Alkaline Phosphatase 171 H D Troponin I High Sens B-Natriuretic Peptide Total Protein 6.7 Albumin 3.4 L D Lipase 26 Urine Opiates Screen Ur Barbiturates Screen Ur Phencyclidine Scrn Ur Amphetamines Screen U Benzodiazepines Scrn Urine Cocaine Screen U Marijuana (THC) Screen COVID-19 (DAVI) COVIDMicrotask 10/16/20 10/16/20 10/16/20 10:23 10:23 10:23 MCV MCH MCHC RDW Plt Count MPV Immature Gran % (Auto) Neut % (Auto) Lymph % (Auto) [place] % (Auto) Eos % (Auto) Baso % (Auto) Lymph # (Auto) [place] # (Auto) Eos # (Auto) Baso # (Auto) Abs Immat Gran (auto) Absolute Neuts (auto) Absolute Nucleated RBC Nucleated RBC % (auto) PT 14.4 H D INR 1.2 H APTT 37.1 VBG pH VBG pCO2 VBG pO2 VBG HCO3 VBG O2 Saturation VBG Base Excess Anion Gap Estim Creat Clear Calc Estimated GFR Random Glucose Lactic Acid Calcium Magnesium Total Bilirubin Direct Bilirubin AST ALT Alkaline Phosphatase Troponin I High Sens 27.9 B-Natriuretic Peptide 1003 H Total Protein Albumin Lipase Urine Opiates Screen Ur Barbiturates Screen Ur Phencyclidine Scrn Ur Amphetamines Screen U Benzodiazepines Scrn Urine Cocaine Screen U Marijuana (THC) Screen COVID-19 (DAVI) COVID-[employer] 10/16/20 10/16/20 10/16/20 10:25 10:33 10:58 MCV MCH MCHC RDW Plt Count MPV Immature Gran % (Auto) Neut % (Auto) Lymph % (Auto) [place] % (Auto) Eos % (Auto) Baso % (Auto) Lymph # (Auto) [place] # (Auto) Eos # (Auto) Baso # (Auto) Abs Immat Gran (auto) Absolute Neuts (auto) Absolute Nucleated RBC Nucleated RBC % (auto) PT INR APTT VBG pH 7.38 VBG pCO2 85 VBG pO2 223 VBG HCO3 50 H VBG O2 Saturation 100.0 VBG Base Excess 19.1 Anion Gap Estim Creat Clear Calc Estimated GFR Random Glucose Lactic Acid Calcium Magnesium Total Bilirubin Direct Bilirubin AST ALT Alkaline Phosphatase Troponin I High Sens B-Natriuretic Peptide Total Protein Albumin Lipase Urine Opiates Screen POSITIVE H Ur Barbiturates Screen Not Detected Ur Phencyclidine Scrn Not Detected Ur Amphetamines Screen Not Detected U Benzodiazepines Scrn Not Detected Urine Cocaine Screen POSITIVE H U Marijuana (THC) Screen POSITIVE H COVID-19 (DAVI) Negative COVID-19 Clin Com See Note Imaging Radiologist's Impressions: Impressions Chest X-Ray 10/16/20 10:07 IMPRESSION: Diffuse bilateral patchy opacities in both lower lobes, and frontal region right upper lobe, question developing infiltrates. Assessment and Plan (1) Acute respiratory failure with hypoxia: Status: Acute Assessment: 60-year-old gentleman with underlying history of polysubstance abuse and congestive heart failure admitted with acute hypoxic respiratory failure secondary to a combination of acute on chronic congestive heart failure and polysubstance abuse initially requiring BiPAP support. Plan: Neuro: toxic encephalopathy secondary to polysubstance abuse /intoxication, expect to improve. Monitor for withdrawal symptoms. Cardiac: acute on chronic diastolic congestive heart failure. 2D echocardiogram is pending. Continue with diuresis. Pulmonary: Acute hypoxic respiratory failure secondary to exacerbation of underlying congestive heart failure and polysubstance abuse. Titrated off BiPAP. Continue to titrate of supplemental oxygen as tolerated. Renal: No acute issues. Endo: No acute issues. GI: No acute issues. ID: No acute issues Heme/Onc: No acute issues. Psych: No acute issues. Miscellaneous: No acute issues. Prophylaxis: Heparin Diet: nothing by mouth Critical care time spent: 60 minutes (2) Acute on chronic diastolic (congestive) heart failure: Status: Acute (3) Polysubstance abuse: Status: Acute (4) Toxic encephalopathy: Status: Acute
--- NOTE | 2020-10-16 14:52 | PC.NURSE ---
pt repositioned back in bed, placed back on highflow nc which pt removed while this rn out of room, found to be spo2 86% on ra. pt briskly returning to spo2 98% on highflow. pt intermittently yawning, no other apparent s/s withdrawal. pt refusing urinary catheter, able to use urinal at bedside.
[2020-10-16 15:14] LABS: Venous Blood Gas Refer to POC result
[2020-10-16] MEDS: acetaZOLAMIDE sodium 500 MG VIAL 375 MG IVPUSH (15:14)
[2020-10-16] MEDS: Albumin Human 25 % 100 ML IV ×2 (15:14→20:40)
[2020-10-16] MEDS: Heparin Sodium,Porcine 5,000 UNIT/ML VIAL 5000 UNIT SUBCUT ×2 (15:15→20:40)
[2020-10-16] MEDS: Potassium Chloride/H20 10 MEQ/100 ML PIGGYBACK 100 MEQ IV ×4 (15:15→18:34)
[2020-10-16 15:21] LABS: VBG HCO3 44 mmol/L (22-26); VBG pCO2 66 mmHg; VBG pH 7.43 (7.32-7.43); VBG pO2 242 mmHg
--- NOTE | 2020-10-16 18:40 | PC.NURSE ---
Pt lethargic oriented x3, falls asleep with any breaks in conversation, rouses to voice, RR 12-16, SaO2 95-97% on Highflow 45L/min FiO2 60%. Denies pain. Arrived to unit at 1600, ambulated to bed from stretcher with steady gait, pt refused ta-uses urinal at bedside, impulsive-bed alarm on. Critical BICARB of 44H, MENS LOCKER ROOM ATTENDANT aware. Bed locked and in lowest position, call john in reach.
[2020-10-16 18:45] LABS: Anion Gap 13 (12-20); Blood Urea Nitrogen 32 mg/dL (9-16); Calcium 8.6 mg/dL (8.4-10.2); Carbon Dioxide 44 mmol/L (22-29); Chloride 91 mmol/L (96-108); Creatinine Clr Calc Pharmacy 57.9; Estimated Glomerular Filt Rate 46; Glucose Random 142 mg/dL (60-115); Sodium 144 mmol/L (135-145)
[2020-10-16] MEDS: Albuterol/Iprat 2.5/0.5MG 3 ML AMPUL.NEB INHALE ×2 (19:36→23:58)
[2020-10-17] VITALS (24 sets, daily range): BP systolic 150–192; BP diastolic 81–106; PULSE 65–92; RESP 11–22; TEMP 35.9–37.7; O2SAT 88–100; BMI 25.6
[2020-10-17] MEDS: acetaZOLAMIDE sodium 500 MG VIAL 375 MG IVPUSH ×3 (02:04→19:05)
--- NOTE | 2020-10-17 02:15 | PC.NURSE ---
Patient receiving IV lasix. Refuses ta or [place]. Uses urinal inconsistently. Will impulsively jump out of bed to urinate, spilling urine on the floor and himself. Incontinent of urine x1. Refuses hygiene, will not change his pants, despite being provided with hospital attire. Educated on skin integrity, fall prevention, and the importance of accurate I&O without impact.
[2020-10-17 05:20] LABS: MANUAL DIFF FLAG NO
[2020-10-17 05:21] LABS: VBG Base Excess 16.5 mmol/L; VBG HCO3 46 mmol/L (22-26); VBG pCO2 74 mmHg; VBG pO2 62 mmHg
[2020-10-17] MEDS: Albuterol/Iprat 2.5/0.5MG 3 ML AMPUL.NEB INHALE (05:23)
[2020-10-17 05:24] LABS: Basophils Percent Auto 0.1 % (0-2); Eosinophils Absolute Auto 0.1 X10*3/uL (0.0-0.4); Eosinophils Percent Auto 0.8 % (0-4); Hematocrit 49.8 % (42-52); Hemoglobin 15.4 g/dl (14.0-18.0); Imm Gran Abs Auto 0.02 X10*3/uL (0.00-0.03); Imm Gran Pct Auto 0.3 % (0.0-0.4); Lymphocytes Absolute Auto 0.8 X10*3/uL (1.2-4.9); Lymphocytes Percent Auto 11.9 % (20-40); Mean Corpuscular HGB Conc 30.9 g/dl (31.0-36.0); Mean Corpuscular Hemoglobin 26.4 pg (27.0-33.0); Mean Corpuscular Volume 85.3 fL (80-98); Mean Platelet Volume 9.3 fL (9.4-12.4); Monocytes Absolute Auto 0.5 X10*3/uL (0.1-1.2); Monocytes Percent Auto 6.6 % (2-11); Neutrophils Absolute Auto 5.7 X10*3/uL (2.0-8.3); Neutrophils Percent Auto 80.3 % (45-73); Platelet Count 166 X10*3/uL (160-400); Red Blood Count 5.84 X10*6/uL (4.60-5.80); White Blood Count 7.1 X10*3/uL (4.8-10.8)
[2020-10-17 05:25] LABS: Venous Blood Gas Refer to POC result
[2020-10-17 05:51] LABS: Carbon Dioxide 41 mmol/L (22-29)
[2020-10-17 05:52] LABS: Alanine Aminotransferase 16 U/L (0-40); Albumin Level 3.5 g/dL (3.5-5.0); Alkaline Phosphatase 143 U/L (39-117); Anion Gap 10 (12-20); Aspartate Amino Transferase 20 U/L (5-37); Bilirubin Total 1.6 mg/dL (0.0-1.0); Blood Urea Nitrogen 31 mg/dL (9-16); Calcium 8.7 mg/dL (8.4-10.2); Chloride 96 mmol/L (96-108); Creatinine Clr Calc Pharmacy 67.9; Estimated Glomerular Filt Rate 55; Glucose Random 96 mg/dL (60-115); Magnesium 2.4 mg/dL (1.6-2.6); Phosphorus 5.3 mg/dL (2.7-4.5); Potassium 3.9 mmol/L (3.3-5.1); Sodium 143 mmol/L (135-145); Total Protein 6.6 g/dL (6.5-8.0)
[2020-10-17] MEDS: Furosemide 40 MG/4 ML VIAL IVPUSH (07:15)
--- NOTE | 2020-10-17 08:30 | CA_ITS ---
Transthoracic Echocardiogram Patient (Last, First, Middle): Ronal Conrad, Gender: Male Date of : 1960 Age: 60 Procedure Date: 10/17/2020 Procedure Type: Transthoracic Echocardiogram Location: ICU Height: 185.42 cm Weight: 88. kg BSA: 2.12 m2 Heart Rate: bpm BP: 170 / 93 mmHg Community Action Worker: JAD Referring MD: Hamzah Olmedo MD Symptoms: dyspnea Study Quality: Fair Conclusions: - 1. Normal LV systolic function with impaired relaxation filling pattern with regional wall motion abnormality 2. Mildly dilated right ventricle with normal contractility 3. Moderately dilated left atrium 4. [id number] mitral and calcification with normal cardiac valvular Doppler 5. Moderately elevated right ventricular systolic pressure with significant elevated right atrial pressure 6. No pericardial effusion Findings Left Ventricle Normal left ventricular size, thickness, and systolic function. The visually estimated ejection fraction is between 55-60%. Spectral Doppler is indicative of an impaired relaxation filling pattern. E/E prime ratio is between 8 and 15 consistent with indeterminate filling pressures. Wall Motion Rest Echo Findings The basal inferior and basal inferolateral segments are akinetic. All other scored wall segments showed normal motion. Right Ventricle Mildly increased right ventricular cavity size. There is normal right ventricular systolic function. Atria The left atrium is moderately dilated. There is no evidence of interatrial shunt. The right atrium is mildly dilated. Aortic Valve The aortic valve structure and function is likely normal. There is mild calcification of the aortic valve. There is no aortic valve stenosis. There is no aortic valve regurgitation. Mitral Valve There is mild anterior and moderate posterior mitral leaflet thickening. There is mild mitral annular calcification. There is trace mitral valve regurgitation. There is no mitral valve stenosis. Pulmonic Valve The pulmonic valve was not well visualized. Tricuspid Valve Likely normal tricuspid valve structure and function. Great Vessels All visible segments of the aorta are normal in size. The pulmonary artery was not well visualized. Venous The inferior vena cava is moderately dilated and collapses less than 50% with inspiration. Pericardium/Pleural There is no evidence of pericardial effusion. Prior Study Comparison Changes noted compared to prior study dated: 06/13/2018. RV systolic pressure is elevated Measurements 2D Linear Measurements IVSd: 1.12 0.6-0.9/0.6-1.0 cm LVIDd: 5.19 3.9-5.3/4.2-5.9 cm LVIDd Index: 2.45 2.4-3.2/2.2-3.1 cm/m2 LVIDs: 3.87 2.0-3.6 cm LVPWd: 1.00 0.7-1.1 cm Ao Root: 3.30 2.1-3.5 cm LA Diam: 4.20 2.7-3.8/3.0-4.0 cm LAIDs Index: 1.98 1.5-2.3 cm/m2 LV Mass: 260.85 67-162/88-224 g LV Mass Index: 123.04 43-95/49-115 g/m2 LVOT Diam: 2.00 3.0+(-)1.3 cm Mitral Valve MV Pk E: 1.06 MV PK A: 1.02 MV Decel Time: 301.00 E/A: 1.00 E'Lateral: 7.29 E'Medial: 5.22 E/E' Med: 20.30 E/E' Lat: 14.50 PHT: 88.00 MVA PHT: 2.50 Decel Wythe: 3.52 Aortic Valve AoV Pk Peter: 1.87 AoV Mn Peter: 1.25 AoV VTI: 0.37 AoV Pk Grad: 14.00 Aov Mn Grad: 7.00 CLEMENT Cont.VTI: 2.77 LVOT LVOT Pk Peter: 1.47 LVOT Mn Peter: 1.01 LVOT VTI: 0.33 LVOT Pk Grad: 9.00 LVOT Mn Grad: 5.00 LVOT Diam: 2.00 LVOT Area: 3.14 Diastolic Function MV Pk E: 1.06 MV Pk A: 1.02 E/A: 1.00 E'Medial: 5.22 E/E' Med: 20.30 E' Laterial: 7.29 E/E' Lat: 14.50 Tricuspid Valve TR Pk Peter: 3.08 TR Pk Grad: 38.00 RA Press: 15.00 RVSP: 53.00 Great Vessels Aorta Ao Root-2D: 3.30 2.0-3.7 cm Updated in Other Vendor System with Status of Final Jean Mireles MD electronically signed on 10/17/2020 4:26:11 PM with status of Final
--- NOTE | 2020-10-17 11:58 | PM.CCPN ---
Subjective Subjective Date of Service: 10/17/20 Interval History: Mr. Conrad was admitted to the ICU yesterday because of hypercarbic respiratory failure requiring BiPAP. The patient is a 60-year-old gentleman with underlying history of polysubstance abuse including cocaine, marijuana, fentanyl, and maybe heroin; congestive heart failure (although I am unable to find documentation of this); asthma; and hypertension. Not known to be a CO2 retainer, but bicarb was 35 last month. For his blood pressure, his Med Rec lists amlodipine and Coreg. Last echocardiogram in our records was in 2011, and showed: Normal LV function with moderate LVH; diastolic dysfunction; normal RV size and function; trace MR and TR; IVC was mildly dilated; RV estimate was 41 mm. The patient presented to the ED yesterday morning complaining of an asthma attack and lower extremity edema. The patient had shortness of breath, cough, wheezing, and orthopnea; he denied fever or chills. He said he had been having symptoms for a month. He admitted to snorting cocaine the day prior. In the ED, the patient was afebrile. Respiratory rate was only 22, with a sat of 60% on room air. He had rales on exam, 2+ pitting edema, and mild bilat pulmonary infiltrates. White count was normal, bicarb was 42, BUN/creat were 34/1.7 (baseline probably about 16/0.9), BNP was 1003 (compared to 135 a year earlier), troponin was 35, lactate normal, EKG showed no ischemic changes. VBG showed 7.38/85 w BE +19. The patient was put on BiPAP in the ED and treated with diuresis and antibiotics. After of couple of hours, he came off BiPAP easily onto nasal cannula. However he developed somnolence. It was thought that he might have taken heroin surreptitiously in the ED. He was given Narcan with unclear results. Ultimately he was admitted to the ICU, where antibiotics were not continued, he was continued on Lasix, and he was given Diamox for his metabolic alkalosis. This morning the patient is easily arousable. He is breathing easy. With his oxygen off his face, on room air, respiratory rate was 16 with a sat of 89%. On 4 L regular nasal cannula he is satting 95%. The patient continues afebrile. Heart rate 82, blood pressure 179/97. We just gave him his amlodipine and Coreg. Pupils are equal round approximately 3-4 mm bilaterally. There is no jugular venous distention with the head of the bed at 30 degrees. Chest is clear to auscultation, with no rales or wheezes, and a normal expiratory phase. Heart rate and rhythm are regular, with normal-sounding S1 and S2, with no murmur or gallops. The abdomen is benign. He has no pretibial or central edema. LABORATORY DATA: As below. Notably, peripheral venous blood gas this morning shows 7.40/74. Base excess is down to +16 on the Diamox. IMPRESSION: 1. Underlying h/o HTN, asthma, polysubstance abuse. 2. His h/o HTN, h/o signif LVH with DDx, and high BNP would all be consistent with Diastolic heart failure. Scheduled for echo today. 3. Uncontrolled HTN. Further contributes to his heart failure. If the amlodipine and Coreg that he?s on is insufficient, could add Lisinopril. 4. Acute hypoxemia and hypercarbic resp failure, 2? above. No evidence of infection (no h/o fever or chills, normal WBC). Following diureis, his hypoxemia has dramatically improved, and his rates, wheezing, and edema have all resolved. 5. ?Asthma?. This supposed h/o asthma could be COPD or CHF. He?s certainly retaining CO2 now, as he was last month, but it can?t be said whether this is 2? to lung disease or 2? chronic diuretic use. Would check a VBG every morning with his regular AM labs to follow his pCO2 and his base excess. 6. Metabolic alkalosis. Would continue the Diamox until his BE drops to low single digits. That will prevent his pCO2 from rising to CO2 Narcosis levels, roya with all the diuresis he?s getting. Getting him OOB and moving will also help keep his pCO2 down. 7. ? PATRICIA. His facial habitus is suggestive of PATRICIA, and he snores when he sleeps. Might benefit from a sleep study and nighttime CPAP. Stable for transfer to [facility]. Will sign out to hospitalist. Time: [id number]. Critical Care Time (minutes): 0 Physical Exam Vital Signs: Vital Signs: Last Vital Signs Temp 98.4 F 10/17/20 10:00 Pulse 83 10/17/20 11:00 Resp 16 10/17/20 11:28 BP 173/87 H 10/17/20 11:00 Pulse Ox 93 10/17/20 11:00 Body Mass Index 25.6 Objective Data Labs CBC & Chem 7: 10/17/20 05:14 10/17/20 05:14 Labs: Laboratory Results - last 24 hr 10/16/20 10/16/20 10/16/20 10:58 15:13 18:06 WBC RBC Hgb Hct MCV MCH MCHC RDW Plt Count MPV Immature Gran % (Auto) Neut % (Auto) Lymph % (Auto) [place] % (Auto) Eos % (Auto) Baso % (Auto) Lymph # (Auto) [place] # (Auto) Eos # (Auto) Baso # (Auto) Abs Immat Gran (auto) Absolute Neuts (auto) Absolute Nucleated RBC Nucleated RBC % (auto) VBG pH 7.43 VBG pCO2 66 VBG pO2 242 VBG HCO3 44 H VBG O2 Saturation 99.0 VBG Base Excess 16.0 Sodium 144 Potassium 4.0 Chloride 91 L Carbon Dioxide 44 H* Anion Gap 13 BUN 32 H Creatinine 1.57 H Estim Creat Clear Calc 57.9 Estimated GFR 46 Random Glucose 142 H Calcium 8.6 Phosphorus Magnesium Total Bilirubin AST ALT Alkaline Phosphatase Total Protein Albumin Urine Opiates Screen POSITIVE H Ur Barbiturates Screen Not Detected Ur Phencyclidine Scrn Not Detected Ur Amphetamines Screen Not Detected U Benzodiazepines Scrn Not Detected Urine Cocaine Screen POSITIVE H U Marijuana (THC) Screen POSITIVE H 10/17/20 10/17/20 10/17/20 05:14 05:14 05:14 WBC 7.1 RBC 5.84 H Hgb 15.4 Hct 49.8 MCV 85.3 MCH 26.4 L MCHC 30.9 L RDW 19.0 H Plt Count 166 MPV 9.3 L Immature Gran % (Auto) 0.3 Neut % (Auto) 80.3 H Lymph % (Auto) 11.9 L [place] % (Auto) 6.6 Eos % (Auto) 0.8 Baso % (Auto) 0.1 Lymph # (Auto) 0.8 L [place] # (Auto) 0.5 Eos # (Auto) 0.1 Baso # (Auto) 0.0 Abs Immat Gran (auto) 0.02 Absolute Neuts (auto) 5.7 Absolute Nucleated RBC 0.000 Nucleated RBC % (auto) 0.0 VBG pH 7.40 VBG pCO2 74 VBG pO2 62 VBG HCO3 46 H VBG O2 Saturation 88.0 VBG Base Excess 16.5 Sodium 143 Potassium 3.9 Chloride 96 Carbon Dioxide 41 H* Anion Gap 10 L BUN 31 H Creatinine 1.34 Estim Creat Clear Calc 67.9 Estimated GFR 55 Random Glucose 96 Calcium 8.7 Phosphorus 5.3 H Magnesium 2.4 Total Bilirubin 1.6 H AST 20 D ALT 16 Alkaline Phosphatase 143 H Total Protein 6.6 Albumin 3.5 Urine Opiates Screen Ur Barbiturates Screen Ur Phencyclidine Scrn Ur Amphetamines Screen U Benzodiazepines Scrn Urine Cocaine Screen U Marijuana (THC) Screen Quality Stroke Does the patient have a stroke diagnosis?: No VTE Prior VTE?: No VTE Risk Level:: Medical - moderate - high VTE Device Contraindication: Treatment Not Indicated VTE Drug Contraindication: N/A - Med Ordered
[2020-10-17] MEDS: Heparin Sodium,Porcine 5,000 UNIT/ML VIAL 5000 UNIT SUBCUT (12:51)
[2020-10-17] MEDS: amLODIPine Besylate 5 MG TABLET PO (12:52)
[2020-10-17] MEDS: carvediloL 12.5 MG TABLET PO ×2 (12:52→21:27)
--- NOTE | 2020-10-17 13:05 | P.CONNP_ITS ---
History of Present Illness Reason for Consult Consult date: 10/17/20 Chief Complaint Chief complaint: Acute hypoxic resp failure CHF Review of Systems Review of Systems Constitutional : No Fever, No Chills ENT/Mouth : No sore throat, No Rhinorrhea, No Swallowing Difficulty Eyes: No Eye Pain, No Swelling, No Redness Cardiovascular : No Chest Pain, positive SOB, pos Orthopnea, positive Edema Respiratory : pos Cough, No Sputum, pos Wheezing, positive dyspnea Gastrointestinal : No Nausea, No Vomiting, No Diarrhea, No abdominal Pain, No Hematochezia, No Melena Genitourinary : No Dysuria, No Urinary Frequency, No Hematuria Musculoskeletal : No joint pain, No Myalgias Skin : No Skin Lesions, No rash Neuro : pos Weakness, No Numbness, No Dizziness, No Headache Psych : No Anxiety/Panic, No Depression Heme/Lymph: No Bruising, No Lymphadenopathy Endocrine : No Polyuria, No Polydipsia All other systems reviewed and are negative Yes Unobtainable due to mental status [facility] Past Medical History Medical History Asthma CHF (congestive heart failure) HTN (hypertension) Pneumonia Substance abuse Social History Social History (Updated 10/16/20 @ 10:17 by Brittany Moreno DO) Household Members: None Housing: House Do you presently have visiting nurse or other home services: No Alcohol intake: never Patient Tobacco Use Status: Current everyday Tobacco user Tobacco use type: Cigarette Substance Use Type: Crack/Cocaine, Heroin and Marijuana Meds Allergies Allergy/AdvReac Type Severity Reaction Status Date / Time No Known Allergies Allergy Unverified 01/07/20 16:51 Active Medications: Current Medications Generic Name Dose Route Start Last Admin Trade Name Freq PRN Reason Stop Dose Admin Acetaminophen 650 mg 10/16/20 14:09 Acetaminophen 325 Mg Tablet PO Q6H PRN Pain, Mild (Pain Scale 1-3) Acetazolamide 375 mg 10/17/20 11:18 10/17/20 12:51 Acetazolamide Sodium 500 Mg Vial IVPUSH 10/18/20 05:19 375 mg Q6H LELA Administration Albuterol/Ipratropium 3 ml 10/16/20 18:00 10/17/20 12:59 Albuterol/Iprat 2.5/0.5mg 3 Ml Ampul.Neb INHALE Not Given RQ6H LELA Amlodipine Besylate 5 mg 10/17/20 12:45 10/17/20 12:52 Amlodipine Besylate 5 Mg Tablet PO 5 mg DAILY ON LICENSE OF [facility] Administration Protocol Atorvastatin Calcium 40 mg 10/17/20 21:00 Atorvastatin Calcium 40 Mg Tablet PO BEDTIME ON LICENSE OF [facility] Carvedilol 12.5 mg 10/17/20 12:35 10/17/20 12:52 Carvedilol 12.5 Mg Tablet PO 12.5 mg BID ON LICENSE OF [facility] Administration Protocol Furosemide 40 mg 10/16/20 19:00 10/17/20 07:15 Furosemide 40 Mg/4 Ml Vial IVPUSH 40 mg Q12H ON LICENSE OF [facility] Administration Protocol Heparin Sodium (Porcine) 5,000 unit 10/16/20 14:00 10/17/20 12:51 Heparin Sodium,Porcine 5,000 Unit/Ml Vial SUBCUT 5,000 unit Q8H ON LICENSE OF [facility] Administration Tiotropium [place] 2 puff 10/18/20 08:00 Tiotropium [place] 18 Mcg Cap.W.Dev INHALE RDAILY ON LICENSE OF [facility] Home Medications Medication Instructions Recorded Confirmed Last Taken Type albuterol sulfate [ProAir HFA] 2 puff INHALATION QID 10/16/20 10/16/20 Unknown History amlodipine 1 tab PO QAM 10/16/20 10/16/20 Unknown History atorvastatin 1 tab PO BEDTIME 10/16/20 10/16/20 Unknown History buprenorphine-naloxone [Suboxone] 2 strip SUBLINGUAL DAILY 10/16/20 10/16/20 Unknown History carvedilol 1 tab PO BID 10/16/20 10/16/20 Unknown History furosemide [Lasix] 3 tab PO DIRECTED 10/16/20 10/16/20 Unknown History ipratropium-albuterol 1 amp INHALATION QID 10/16/20 10/16/20 Unknown History tiotropium bromide [Spiriva 2 puff PO DAILY 10/16/20 10/16/20 Unknown History Respimat] Physical Exam Vital Signs: Last Vital Signs Temp 98.2 F 10/17/20 12:56 Pulse 88 10/17/20 12:56 Resp 12 10/17/20 12:56 BP 171/94 H 10/17/20 12:56 Pulse Ox 94 10/17/20 12:56 Body Mass Index 25.6 Const General: no acute distress, intoxicated appearing and lethargic ( Arousable to painful stimuli) Orientation/consciousness: lethargic ( Arousable to painful stimuli) Eyes Sclerae: sclerae normal EOM: EOMs intact bilaterally Neck Neck: Yes no lymphadenopathy, Yes trachea midline and Yes supple Resp Effort & Inspection: normal respiratory effort and no respiratory distress Auscultation: crackles ( diffuse bilateral) Cardio Rate: regular rate Rhythm: regular rhythm Heart sounds: no gallops, no murmurs and no rubs GI Palpation (GI): Soft to palpation and Other GI palpation findings present ( Nontender) Auscultation: normal bowel sounds Extrem General: No clubbing, No cyanosis and Yes pedal edema ( 2+ bilateral) Results Lab Results Result Diagrams: 10/17/20 05:14 10/17/20 05:14 Lab results: Chemistry 10/16/20 10/16/20 10/17/20 10:23 18:06 05:14 Sodium 143 144 143 Potassium 3.8 4.0 3.9 Carbon Dioxide 42 H* 44 H* 41 H* BUN 34 H 32 H 31 H Creatinine 1.74 H 1.57 H 1.34 Calcium 8.4 8.6 8.7 Phosphorus 5.3 H Hematology 10/16/20 10/17/20 10:23 05:14 WBC 6.4 7.1 Hgb 14.8 15.4 Plt Count 199 D 166 Assessment and Plan (1) Acute respiratory failure with hypoxia: Status: Acute Assessment: 60-year-old gentleman with underlying history of polysubstance abuse and congestive heart failure admitted with acute hypoxic respiratory failure secondary to a combination of acute on chronic congestive heart failure and polysubstance abuse initially requiring BiPAP support. he has been followed by Dr Frost for uncontrolled HTNand 1 gram of protienuria Plan: We will work him up for 2nd causes of HTN and tretat his HTN and proteinuria with ACEI/ARB. We will f/u as OP Neuro: toxic encephalopathy secondary to polysubstance abuse /intoxication, expect to improve. Monitor for withdrawal symptoms. Cardiac: acute on chronic diastolic congestive heart failure. 2D ech ocardiogram is pending. Continue with diuresis. Pulmonary: Acute hypoxic respiratory failure secondary to exacerbation of underlying congestive heart failure and polysubstance abuse. Titrated off BiPAP. Continue to titrate of supplemental oxygen as tolerated. Renal: No acute issues. Endo: No acute issues. GI: No acute issues. ID: No acute issues Heme/Onc: No acute issues. Psych: No acute issues. Miscellaneous: No acute issues. Prophylaxis: Heparin Diet: nothing by mouth Critical care time spent: 60 minutes (2) Acute on chronic diastolic (congestive) heart failure: Status: Acute (3) Polysubstance abuse: Status: Acute (4) Toxic encephalopathy: Status: Acute Procedures Date of Service Date of Service: 10/17/20
--- NOTE | 2020-10-17 13:12 | PM.CNNEP ---
History of Present Illness Reason for Consult Consult date: 10/17/20 Chief Complaint Chief complaint: Acute hypoxic resp failure [facility]F [facility] Past Medical History Medical History Asthma CHF (congestive heart failure) HTN (hypertension) Pneumonia Substance abuse Social History Social History (Updated 10/16/20 @ 10:17 by Brittany Moreno DO) Household Members: None Housing: House Do you presently have visiting nurse or other home services: No Alcohol intake: never Patient Tobacco Use Status: Current everyday Tobacco user Tobacco use type: Cigarette Substance Use Type: Crack/Cocaine, Heroin and Marijuana Meds Allergies Allergy/AdvReac Type Severity Reaction Status Date / Time No Known Allergies Allergy Unverified 01/07/20 16:51 Active Medications: Current Medications Generic Name Dose Route Start Last Admin Trade Name Freq PRN Reason Stop Dose Admin Acetaminophen 650 mg 10/16/20 14:09 Acetaminophen 325 Mg Tablet PO Q6H PRN Pain, Mild (Pain Scale 1-3) Acetazolamide 375 mg 10/17/20 11:18 10/17/20 12:51 Acetazolamide Sodium 500 Mg Vial IVPUSH 10/18/20 05:19 375 mg Q6H LELA Administration Albuterol/Ipratropium 3 ml 10/16/20 18:00 10/17/20 12:59 Albuterol/Iprat 2.5/0.5mg 3 Ml Ampul.Neb INHALE Not Given RQ6H LELA Amlodipine Besylate 5 mg 10/17/20 12:45 10/17/20 12:52 Amlodipine Besylate 5 Mg Tablet PO 5 mg DAILY LELA Administration Protocol Atorvastatin Calcium 40 mg 10/17/20 21:00 Atorvastatin Calcium 40 Mg Tablet PO BEDTIME LELA Carvedilol 12.5 mg 10/17/20 12:35 10/17/20 12:52 Carvedilol 12.5 Mg Tablet PO 12.5 mg BID LELA Administration Protocol Furosemide 40 mg 10/16/20 19:00 10/17/20 07:15 Furosemide 40 Mg/4 Ml Vial IVPUSH 40 mg Q12H LELA Administration Protocol Heparin Sodium (Porcine) 5,000 unit 10/16/20 14:00 10/17/20 12:51 Heparin Sodium,Porcine 5,000 Unit/Ml Vial SUBCUT 5,000 unit Q8H LELA Administration Tiotropium [place] 2 puff 10/18/20 08:00 Tiotropium [place] 18 Mcg Cap.W.Dev INHALE RDAILY COUNTS INCLUDE 234 BEDS AT THE [facility] Home Medications Medication Instructions Recorded Confirmed Last Taken Type albuterol sulfate [ProAir HFA] 2 puff INHALATION QID 10/16/20 10/16/20 Unknown History amlodipine 1 tab PO QAM 10/16/20 10/16/20 Unknown History atorvastatin 1 tab PO BEDTIME 10/16/20 10/16/20 Unknown History buprenorphine-naloxone [Suboxone] 2 strip SUBLINGUAL DAILY 10/16/20 10/16/20 Unknown History carvedilol 1 tab PO BID 10/16/20 10/16/20 Unknown History furosemide [Lasix] 3 tab PO DIRECTED 10/16/20 10/16/20 Unknown History ipratropium-albuterol 1 amp INHALATION QID 10/16/20 10/16/20 Unknown History tiotropium bromide [Spiriva 2 puff PO DAILY 10/16/20 10/16/20 Unknown History Respimat] Physical Exam Vital Signs: Last Vital Signs Temp 98.2 F 10/17/20 12:56 Pulse 88 10/17/20 12:56 Resp 12 10/17/20 12:56 BP 171/94 H 10/17/20 12:56 Pulse Ox 94 10/17/20 12:56 Body Mass Index 25.6 Results Lab Results Result Diagrams: 10/17/20 05:14 10/17/20 05:14 Lab results: Chemistry 10/16/20 10/16/20 10/17/20 10:23 18:06 05:14 Sodium 143 144 143 Potassium 3.8 4.0 3.9 Carbon Dioxide 42 H* 44 H* 41 H* BUN 34 H 32 H 31 H Creatinine 1.74 H 1.57 H 1.34 Calcium 8.4 8.6 8.7 Phosphorus 5.3 H Hematology 10/16/20 10/17/20 10:23 05:14 WBC 6.4 7.1 Hgb 14.8 15.4 Plt Count 199 D 166 Procedures Date of Service Date of Service: 10/17/20
--- NOTE | 2020-10-17 15:23 | MHC.CM.PN ---
Met with pt to discuss d/c planning: pt vague, yawning and keeping eyes closed for most of interview. Pt states he lives alone, is independent with care needs, drives and does not have services or use adaptive equipment. He states he drives himself to appointments and that his PCP is Dr. Sam at the [facility]. Hx of substance abuse (crack cocaine) Pt declines completion of HCP, states he has no one Review of medical records from 08/2020 admission to [facility] in [place] note a [employer]GER [employer] named Khushi Santa and stepdtr named Gracie. Pt would not comment when asked about this. At this time, no additional services are anticipated, Pt states he will call a friend for transportation home - the name sounded like French - pt declined to clarify - stated he was tired . CM to reapproach for finalization of d/c plan
[2020-10-17] MEDS: hydrALAZINE HCl 50 MG TABLET PO (21:27)
[2020-10-17] MEDS: Atorvastatin Calcium 40 MG TABLET PO (21:27)
[2020-10-18] VITALS (12 sets, daily range): BP systolic 160–192; BP diastolic 87–99; PULSE 75–84; RESP 18–20; TEMP 36.4–36.9; O2SAT 91–100; BMI 24.0
[2020-10-18] MEDS: acetaZOLAMIDE sodium 500 MG VIAL 375 MG IVPUSH ×2 (00:11→04:39)
[2020-10-18] MEDS: hydrALAZINE HCl 20 MG/ML VIAL 5 MG IVPUSH (01:00)
--- NOTE | 2020-10-18 04:27 | PC.NURSE ---
@ 19:54 P: Pt's BP elevated to 191/98. Pt asymptomatic. Other VSS. I: notified. BP rechecked after HS BP meds given per MD request and found to still be elevated at 192/93. One time dose of Hydralazine 5mg IV push ordered. E: BP decreased to 176/99 at 02:40. MD updated. No new orders at this time. @00:40: P: Pt experienced a 3 second pause on heart monitor. Went in and assessed pt, found to be asymptomatic but O2 was out of pt's nares. I: O2 reinserted into nares and MD notified. E: MD added Cardio consult. Will continue to monitor pt for any signs of distress or other changes in heart rhythm.
[2020-10-18] MEDS: Acetaminophen 325 MG TABLET 650 MG PO ×2 (04:39→09:20)
[2020-10-18] MEDS: Heparin Sodium,Porcine 5,000 UNIT/ML VIAL 5000 UNIT SUBCUT ×2 (04:40→14:33)
[2020-10-18 06:13] LABS: Venous Blood Gas Refer to POC result
[2020-10-18 06:14] LABS: VBG Base Excess 0.5 mmol/L; VBG HCO3 23 mmol/L (22-26); VBG pCO2 34 mmHg; VBG pH 7.44 (7.32-7.43); VBG pO2 94 mmHg
[2020-10-18 06:37] LABS: B Type Natriuretic Peptide 827 pg/mL (<100)
[2020-10-18 06:53] LABS: Alanine Aminotransferase 12 U/L (0-40); Albumin Level 3.4 g/dL (3.5-5.0); Alkaline Phosphatase 141 U/L (39-117); Anion Gap 10 (12-20); Aspartate Amino Transferase 15 U/L (5-37); Bilirubin Total 2.6 mg/dL (0.0-1.0); Blood Urea Nitrogen 20 mg/dL (9-16); Calcium 8.5 mg/dL (8.4-10.2); Carbon Dioxide 25 mmol/L (22-29); Chloride 101 mmol/L (96-108); Creatinine Clr Calc Pharmacy 104.5; Estimated Glomerular Filt Rate > 60; Glucose Random 129 mg/dL (60-115); Phosphorus 2.7 mg/dL (2.7-4.5); Potassium 3.2 mmol/L (3.3-5.1); Sodium 133 mmol/L (135-145); Total Protein 6.6 g/dL (6.5-8.0)
[2020-10-18] MEDS: hydrALAZINE HCl 50 MG TABLET 100 MG PO ×2 (08:24→14:30)
[2020-10-18] MEDS: Furosemide 40 MG TABLET PO (08:25)
[2020-10-18] MEDS: carvediloL 12.5 MG TABLET PO (08:25)
[2020-10-18] MEDS: amLODIPine Besylate 5 MG TABLET PO (08:26)
--- NOTE | 2020-10-18 09:29 | PM.PNNEP ---
Subjective Subjective Date of Service: 10/18/20 Interval history: Mr. Conrad was admitted to the ICU yesterday because of hypercarbic respiratory failure requiring BiPAP. The patient is a 60-year-old gentleman with underlying history of polysubstance abuse including cocaine, marijuana, fentanyl, and maybe heroin; congestive heart failure (although I am unable to find documentation of this); asthma; and hypertension. Not known to be a CO2 retainer, but bicarb was 35 last month. For his blood pressure, his Med Rec lists amlodipine and Coreg. Last echocardiogram in our records was in 2011, and showed: Normal LV function with moderate LVH; diastolic dysfunction; normal RV size and function; trace MR and TR; IVC was mildly dilated; RV estimate was 41 mm. The patient presented to the ED yesterday morning complaining of an asthma attack and lower extremity edema. The patient had shortness of breath, cough, wheezing, and orthopnea; he denied fever or chills. He said he had been having symptoms for a month. He admitted to snorting cocaine the day prior. In the ED, the patient was afebrile. Respiratory rate was only 22, with a sat of 60% on room air. He had rales on exam, 2+ pitting edema, and mild bilat pulmonary infiltrates. White count was normal, bicarb was 42, BUN/creat were 34/1.7 (baseline probably about 16/0.9), BNP was 1003 (compared to 135 a year earlier), troponin was 35, lactate normal, EKG showed no ischemic changes. VBG showed 7.38/85 w BE +19. The patient was put on BiPAP in the ED and treated with diuresis and antibiotics. After of couple of hours, he came off BiPAP easily onto nasal cannula. However he developed somnolence. It was thought that he might have taken heroin surreptitiously in the ED. He was given Narcan with unclear results. Ultimately he was admitted to the ICU, where antibiotics were not continued, he was continued on Lasix, and he was given Diamox for his metabolic alkalosis. This morning the patient is easily arousable. He is breathing easy. With his oxygen off his face, on room air, respiratory rate was 16 with a sat of 89%. On 4 L regular nasal cannula he is satting 95%. The patient continues afebrile. Heart rate 82, blood pressure 179/97. We just gave him his amlodipine and Coreg. Pupils are equal round approximately 3-4 mm bilaterally. There is no jugular venous distention with the head of the bed at 30 degrees. Chest is clear to auscultation, with no rales or wheezes, and a normal expiratory phase. Heart rate and rhythm are regular, with normal-sounding S1 and S2, with no murmur or gallops. The abdomen is benign. He has no pretibial or central edema. LABORATORY DATA: As below. Notably, peripheral venous blood gas this morning shows 7.40/74. Base excess is down to +16 on the Diamox. IMPRESSION: 1. Underlying h/o HTN, asthma, polysubstance abuse. 2. His h/o HTN, h/o signif LVH with DDx, and high BNP would all be consistent with Diastolic heart failure. Scheduled for echo today. 3. Uncontrolled HTN. Further contributes to his heart failure. If the amlodipine and Coreg that he?s on is insufficient, could add Lisinopril. 4. Acute hypoxemia and hypercarbic resp failure, 2? above. No evidence of infection (no h/o fever or chills, normal WBC). Following diureis, his hypoxemia has dramatically improved, and his rates, wheezing, and edema have all resolved. 5. ?Asthma?. This supposed h/o asthma could be COPD or CHF. He?s certainly retaining CO2 now, as he was last month, but it can?t be said whether this is 2? to lung disease or 2? chronic diuretic use. Would check a VBG every morning with his regular AM labs to follow his pCO2 and his base excess. 6. Metabolic alkalosis. Would continue the Diamox until his BE drops to low single digits. That will prevent his pCO2 from rising to CO2 Narcosis levels, roya with all the diuresis he?s getting. Getting him OOB and moving will also help keep his pCO2 down. 7. ? PATRICIA. His facial habitus is suggestive of PATRICIA, and he snores when he sleeps. Might benefit from a sleep study and nighttime CPAP. Stable for transfer to [facility] [place]. Will sign out to hospitalist. Time: [id number]. Physical Exam Vital Signs: Vital Signs: Last Vital Signs Temp 98.0 F 10/18/20 07:44 Pulse 76 10/18/20 08:58 Resp 20 10/18/20 07:44 BP 174/98 H 10/18/20 08:26 Pulse Ox 93 10/18/20 07:44 Body Mass Index 24.0 Const: General: no acute distress, intoxicated appearing and lethargic ( Arousable to painful stimuli) Orientation/consciousness: lethargic ( Arousable to painful stimuli) Eyes: Sclerae: sclerae normal EOM: EOMs intact bilaterally Neck: Neck: Yes no lymphadenopathy, Yes trachea midline and Yes supple Resp: Effort & Inspection: normal respiratory effort and no respiratory distress Auscultation: crackles ( diffuse bilateral) Cardio: Rate: regular rate Rhythm: regular rhythm Heart sounds: no gallops, no murmurs and no rubs GI: Palpation (GI): Soft to palpation and Other GI palpation findings present ( Nontender) Auscultation: normal bowel sounds Extrem: General: No clubbing, No cyanosis and Yes pedal edema ( 2+ bilateral) Objective Data Labs CBC & Chem 7: 10/17/20 05:14 10/18/20 06:04 Labs: Laboratory Results - last 24 hr 10/18/20 10/18/20 10/18/20 06:04 06:04 06:06 VBG pH 7.44 H VBG pCO2 34 VBG pO2 94 VBG HCO3 23 VBG O2 Saturation 99.0 VBG Base Excess 0.5 Sodium 133 L Potassium 3.2 L Chloride 101 Carbon Dioxide 25 Anion Gap 10 L BUN 20 H Creatinine 0.87 Estim Creat Clear Calc 104.5 Estimated GFR > 60 Random Glucose 129 H Calcium 8.5 Phosphorus 2.7 Magnesium 2.0 Total Bilirubin 2.6 H AST 15 ALT 12 Alkaline Phosphatase 141 H B-Natriuretic Peptide 827 H Total Protein 6.6 Albumin 3.4 L Microbiology Microbiology Results: Microbiology 10/16/20 10:33 Blood - Venous Blood Culture - Preliminary No growth after 24 hours. 10/16/20 10:25 Blood - Venous Blood Culture - Preliminary No growth after 24 hours. Assessment & Plan Assessment and plan (1) Acute respiratory failure with hypoxia: Status: Acute Assessment and Plan: Assessment: 60-year-old gentleman with underlying history of polysubstance abuse and congestive heart failure admitted with acute hypoxic respiratory failure secondary to a combination of acute on chronic congestive heart failure and polysubstance abuse initially requiring BiPAP support. he has been followed by Dr Frost for uncontrolled HTNand 1 gram of protienuria Plan: We will work him up for 2nd causes of HTN and tretat his HTN and proteinuria with ACEI/ARB. We will f/u as OP i ordered renin larisa and CTA to r/o GARY Neuro: toxic encephalopathy secondary to polysubstance abuse /intoxication, expect to improve. Monitor for withdrawal symptoms. Cardiac: acute on chronic diastolic congestive heart failure. 2D echocardiogram is pending. Continue with diuresis. Pulmonary: Acute hypoxic respiratory failure secondary to exacerbation of underlying congestive heart failure and polysubstance abuse. Titrated off BiPAP. Continue to titrate of supplemental oxygen as tolerated. Renal: No acute issues. Endo: No acute issues. GI: No acute issues. ID: No acute issues Heme/Onc: No acute issues. Psych: No acute issues. Miscellaneous: No acute issues. Prophylaxis: Heparin Diet: nothing by mouth Critical care time spent: 60 minutes (2) Acute on chronic diastolic (congestive) heart failure: Status: Acute (3) Polysubstance abuse: Status: Acute (4) Toxic encephalopathy: Status: Acute Time Spent With Patient Time: Total time spent is greater than 50% in coordination of care (as documented) at patient's floor/unit and/or counseling patient: Procedures Date of Service Date of Service: 10/18/20 Progress Note: Quality Stroke Does the patient have a stroke diagnosis?: No
--- NOTE | 2020-10-18 10:00 | MHC.RECOVRN ---
60 year old male presented to [facility] [place] [facility], ambulatory, on 10/16 due to SOB, swelling in bilateral lower extremities, states he has had trouble breathing for last month. ?SPO2 60% in triage per hospice volunteer. Pt subsequently?admitted to ICU for treatment of?acute hypoxic respiratory failure and toxic encephalopathy secondary to exacerbation of underlying congestive heart failure. Pt transferred to [facility] [place] on 10/17. T/w met with pt in 443 after consult placed to Addiction Medicine for polysubstance use. Pt reports cocaine use, [place], last use 10/15. Pt reports using $10 every 3 days. Pt currently experiencing back pain. Pt denies withdrawal symptoms, however, appears very restless.? Case discussed with Tamara Brewer APRN. Pt in fact on Suboxone through [facility], 8 mg BID.?MQ to see pt.? ?
--- NOTE | 2020-10-18 10:59 | PM.CNCAR ---
History of Present Illness History of Present Illness Date of Service: 10/18/20 Requesting physician: Earle Pak Consult reason: congestive heart failure Chief complaint: Acute hypoxic resp failure CHF Narrative: I was requested to see Ronal in cardiology consultation today, was admitted to ICU on 10/16 with respiratory failure with hypoxia and hypercarbia. He was noted to be in heart failure. he has prior history of heart failure with normal LV systolic function, polysubstance abuse, hypertension, asthma. Patient was admitted to ICU, required treatment for respiratory failure and was diuresed. Has diuresed about 9 L since admission was also given Lasix drip and Diamox. His bicarb has improved, most likely due to improvement in his respiratory acidosis. Also his volume status has improved. His U tox was positive for opiates, cocaine as well marijuana. Currently is not complaining of any cardiac symptoms. His leg edema is improved. It does not complain of shortness of breath, chest pain. He has back pain which is his main complain and he is very fidgety in bed. his blood pressure is significantly elevated. Review of Systems Constitutional: Constitutional: Reports no additional constitutional complaints Cardiovascular: Cardiovascular: Reports no additional cardiovascular complaints Respiratory: Respiratory: Reports no additional respiratory complaints Gastrointestinal: Gastrointestinal: Reports no additional gastrointestinal complaints Musculoskeletal: Musculoskeletal: Reports back pain Neurologic: Reports system reviewed and no additional complaints, except as documented Psychiatric: Psychiatric: Reports no additional psychiatric complaints Endocrine: Endocrine: Reports no additional endocrine complaints [facility] Past Medical History Medical History Asthma CHF (congestive heart failure) HTN (hypertension) Pneumonia Substance abuse Social History Social History Household Members: None Housing: House Do you presently have visiting nurse or other home services: No Alcohol intake: never Patient Tobacco Use Status: Current everyday Tobacco user Tobacco use type: Cigarette Substance Use Type: Crack/Cocaine, Heroin and Marijuana service: No Current occupational status: unemployed Meds Allergies Allergy/AdvReac Type Severity Reaction Status Date / Time No Known Allergies Allergy Unverified 01/07/20 16:51 Active Medications: Current Medications Generic Name Dose Route Start Last Admin Trade Name Freq PRN Reason Stop Dose Admin Acetaminophen 650 mg 10/16/20 14:09 10/18/20 09:20 Acetaminophen 325 Mg Tablet PO 650 mg Q6H PRN Administration Pain, Mild (Pain Scale 1-3) Albuterol/Ipratropium 3 ml 10/16/20 18:00 10/18/20 06:21 Albuterol/Iprat 2.5/0.5mg 3 Ml Ampul.Neb INHALE Not Given RQ6H COUNTS INCLUDE 234 BEDS AT THE [facility] Amlodipine Besylate 5 mg 10/17/20 12:45 10/18/20 08:26 Amlodipine Besylate 5 Mg Tablet PO 5 mg DAILY COUNTS INCLUDE 234 BEDS AT THE [facility] Administration Protocol Atorvastatin Calcium 40 mg 10/17/20 21:00 10/17/20 21:27 Atorvastatin Calcium 40 Mg Tablet PO 40 mg BEDTIME LELA Administration Carvedilol 12.5 mg 10/17/20 12:35 10/18/20 08:25 Carvedilol 12.5 Mg Tablet PO 12.5 mg BID COUNTS INCLUDE 234 BEDS AT THE [facility] Administration Protocol Furosemide 40 mg 10/18/20 09:00 10/18/20 08:25 Furosemide 40 Mg Tablet PO 40 mg DAILY COUNTS INCLUDE 234 BEDS AT THE [facility] Administration Protocol Heparin Sodium (Porcine) 5,000 unit 10/16/20 14:00 10/18/20 04:40 Heparin Sodium,Porcine 5,000 Unit/Ml Vial SUBCUT 5,000 unit Q8H COUNTS INCLUDE 234 BEDS AT THE [facility] Administration Hydralazine HCl 100 mg 10/18/20 09:00 10/18/20 08:24 Hydralazine Hcl 50 Mg Tablet PO 100 mg TID COUNTS INCLUDE 234 BEDS AT THE [facility] Administration Protocol Tiotropium [place] 2 puff 10/18/20 08:00 10/18/20 08:55 Tiotropium [place] 18 Mcg Cap.W.Dev INHALE 2 puff RDAILY COUNTS INCLUDE 234 BEDS AT THE [facility] Administration Home Medications Medication Instructions Recorded Confirmed Last Taken Type albuterol sulfate [ProAir HFA] 2 puff INHALATION QID 10/16/20 10/16/20 Unknown History amlodipine 1 tab PO QAM 10/16/20 10/16/20 Unknown History atorvastatin 1 tab PO BEDTIME 10/16/20 10/16/20 Unknown History buprenorphine-naloxone [Suboxone] 2 strip SUBLINGUAL DAILY 10/16/20 10/16/20 Unknown History carvedilol 1 tab PO BID 10/16/20 10/16/20 Unknown History furosemide [Lasix] 3 tab PO DIRECTED 10/16/20 10/16/20 Unknown History ipratropium-albuterol 1 amp INHALATION QID 10/16/20 10/16/20 Unknown History tiotropium bromide [Spiriva 2 puff PO DAILY 10/16/20 10/16/20 Unknown History Respimat] Physical Exam Vital Signs: Vital Signs: Last Vital Signs Temp 98.0 F 10/18/20 07:44 Pulse 76 10/18/20 08:58 Resp 20 10/18/20 07:44 BP 174/98 H 10/18/20 08:26 Pulse Ox 93 10/18/20 07:44 Body Mass Index 24.0 Const: General: cooperative, comfortable, alert and awake Nutritional Appearance: thin Orientation/consciousness: patient oriented x3 HENMT: Head: Yes normocephalic and Yes atraumatic Neck: Neck: Yes trachea midline, Yes supple and Yes no JVD Resp: Effort & Inspection: normal respiratory effort Auscultation: clear to auscultation bilaterally Cardio: Jugular venous distension: no JVD Palpation: normal PMI Rate: regular rate Rhythm: regular rhythm Heart sounds: S1 normal heart sound present and S2 normal heart sound present GI: Auscultation: normal bowel sounds Skin: General skin exam: no rashes or lesions noted Neuro: General: patient oriented x3, no focal motor deficits and other ( rest less) Results Labs and Meds Result diagrams: 10/17/20 05:14 10/18/20 06:04 Lab results: Laboratory Results - last 24 hr 10/18/20 10/18/20 10/18/20 06:04 06:04 06:06 VBG pH 7.44 H VBG pCO2 34 VBG pO2 94 VBG HCO3 23 VBG O2 Saturation 99.0 VBG Base Excess 0.5 Sodium 133 L Potassium 3.2 L Chloride 101 Carbon Dioxide 25 Anion Gap 10 L BUN 20 H Creatinine 0.87 Estim Creat Clear Calc 104.5 Estimated GFR > 60 Random Glucose 129 H Calcium 8.5 Phosphorus 2.7 Magnesium 2.0 Total Bilirubin 2.6 H AST 15 ALT 12 Alkaline Phosphatase 141 H B-Natriuretic Peptide 827 H Total Protein 6.6 Albumin 3.4 L Conclusions: - 1. Normal LV systolic function with impaired relaxation filling pattern with regional wall motion abnormality 2. Mildly dilated right ventricle with normal contractility 3. Moderately dilated left atrium 4. [id number] mitral and calcification with normal cardiac valvular Doppler 5. Moderately elevated right ventricular systolic pressure with significant elevated right atrial pressure 6. No pericardial effusion Assessment and Plan (1) Acute on chronic diastolic (congestive) heart failure: Status: Acute patient presents with respiratory failure with hypoxia and hypercarbia most likely due to opiate overdose as well as congestive heart failure. Has been diuresed extensively and has diuresed overall 9 L. Clinically appears to be euvolemic on today's exam. Switch to p.o. Bumex 2 mg daily. Add Aldactone 25 mg to his regimen especially given his markedly elevated blood pressure. Also increase Norvasc to 10 mg daily. His uncontrolled blood pressure may be related to possibly withdrawal, unclear. Consider consultation for addiction. Continue hydralazine as well as carvedilol. Carvedilol comes with slight risk given his cocaine use but has both Alpha and Beta receptor antagonist activity. no further recommendations at this point time. He needs to stop using drugs. This was discussed with him. Not sure if he would comply with it. Replace potassium Will follow with you if need be. Thank you for allowing us to partake in his care. Procedures Date of Service Date of Service: 10/18/20
[2020-10-18] MEDS: Albuterol/Iprat 2.5/0.5MG 3 ML AMPUL.NEB INHALE (11:19)
[2020-10-18] MEDS: Buprenorphine/Naloxone 2/0.5mg FILM 1 FILM SUBLINGUAL (11:45)
--- NOTE | 2020-10-18 12:05 | HO.ADDICT_ITS ---
History of Present Illness Date of Service: 10/18/2020 Chief Complaint: Acute hypoxic resp failure CHF Reason for Consult: OUD Requesting physician: Earle Pak Discussed with referring provider: Yes Sources of Information: patient interviewed and chart reviewed HPI Narrative: Patient is a 60-year-old male with history of hypertension and opioid use disorder. Currently medically admitted for respiratory failure. Recently transferred to the medical floor from the ICU. Consult requested as patient has history of opioid use disorder and there was question as to whether he used heroin while he was in the emergency room. Patient seen in room 443, is laying in bed awake, somewhat disheveled, and frequently shifting in the bed. Difficult to obtain history from this patient as he was not very engaged in interview. Patient did appear to be experiencing some withdrawal symptoms, restlessness, sweating, yawning, and runny nose. patient reports that he last used heroin 4 days ago. Patient confirmed that he does take Suboxone, unable to report what his dose is. Denies any other substance use ( urine drug screen does show cocaine ). Per [facility] Pat patient is engaged in treatment at [facility]. Past Psychiatric History: Not reviewed Medical Evaluation Reviewed: Yes Review of Systems Constitutional: Reports as per HPI Diagnostics Vital Signs (24Hr): Vital Signs - 24 hr 10/17/20 12:52 10/17/20 12:56 10/17/20 14:00 Temperature 98.2 F 98.4 F Pulse Rate 79 88 65 Respiratory Rate 12 14 Blood Pressure 171/94 H 171/94 H 154/93 H Pulse Oximetry 94 90 L 10/17/20 15:35 10/17/20 19:25 10/17/20 21:27 Temperature 99 F 99.1 F Pulse Rate 72 78 78 Respiratory Rate 18 18 Blood Pressure 186/106 H 191/98 H 191/98 H Pulse Oximetry 91 L 90 L 10/17/20 23:50 10/17/20 23:56 10/18/20 01:00 Temperature 96.7 F L 97.6 F Pulse Rate 80 76 76 Respiratory Rate 18 18 Blood Pressure 192/93 H 192/93 H 192/93 H Pulse Oximetry 88 L 88 L 10/18/20 01:55 10/18/20 03:16 10/18/20 07:44 Temperature 97.6 F 97.7 F 98.0 F Pulse Rate 80 75 79 Respiratory Rate 18 18 20 Blood Pressure 176/99 H 190/87 H 174/98 H Pulse Oximetry 92 92 93 10/18/20 08:24 10/18/20 08:25 10/18/20 08:26 Temperature Pulse Rate 79 79 79 Respiratory Rate Blood Pressure 174/98 H 174/98 H 174/98 H Pulse Oximetry 10/18/20 08:58 10/18/20 11:22 10/18/20 11:25 Temperature 98.1 F Pulse Rate 76 84 78 Respiratory Rate 20 Blood Pressure 160/89 H Pulse Oximetry 97 Body Mass Index 24.0 Labs Results: 10/17/20 05:14 10/18/20 06:04 Labs: Laboratory Results - last 48 hr 10/16/20 10/16/20 10/16/20 10:58 15:13 18:06 WBC RBC Hgb Hct MCV MCH MCHC RDW Plt Count MPV Immature Gran % (Auto) Neut % (Auto) Lymph % (Auto) [place]born % (Auto) Eos % (Auto) Baso % (Auto) Lymph # (Auto) [place] # (Auto) Eos # (Auto) Baso # (Auto) Abs Immat Gran (auto) Absolute Neuts (auto) Absolute Nucleated RBC Nucleated RBC % (auto) VBG pH 7.43 VBG pCO2 66 VBG pO2 242 VBG HCO3 44 H VBG O2 Saturation 99.0 VBG Base Excess 16.0 Sodium 144 Potassium 4.0 Chloride 91 L Carbon Dioxide 44 H* Anion Gap 13 BUN 32 H Creatinine 1.57 H Estim Creat Clear Calc 57.9 Estimated GFR 46 Random Glucose 142 H Calcium 8.6 Phosphorus Magnesium Total Bilirubin AST ALT Alkaline Phosphatase B-Natriuretic Peptide Total Protein Albumin Urine Opiates Screen POSITIVE H Ur Barbiturates Screen Not Detected Ur Phencyclidine Scrn Not Detected Ur Amphetamines Screen Not Detected U Benzodiazepines Scrn Not Detected Urine Cocaine Screen POSITIVE H U Marijuana (THC) Screen POSITIVE H 10/17/20 10/17/20 10/17/20 05:14 05:14 05:14 WBC 7.1 RBC 5.84 H Hgb 15.4 Hct 49.8 MCV 85.3 MCH 26.4 L MCHC 30.9 L RDW 19.0 H Plt Count 166 MPV 9.3 L Immature Gran % (Auto) 0.3 Neut % (Auto) 80.3 H Lymph % (Auto) 11.9 L Sanborn % (Auto) 6.6 Eos % (Auto) 0.8 Baso % (Auto) 0.1 Lymph # (Auto) 0.8 L Sanborn # (Auto) 0.5 Eos # (Auto) 0.1 Baso # (Auto) 0.0 Abs Immat Gran (auto) 0.02 Absolute Neuts (auto) 5.7 Absolute Nucleated RBC 0.000 Nucleated RBC % (auto) 0.0 VBG pH 7.40 VBG pCO2 74 VBG pO2 62 VBG HCO3 46 H VBG O2 Saturation 88.0 VBG Base Excess 16.5 Sodium 143 Potassium 3.9 Chloride 96 Carbon Dioxide 41 H* Anion Gap 10 L BUN 31 H Creatinine 1.34 Estim Creat Clear Calc 67.9 Estimated GFR 55 Random Glucose 96 Calcium 8.7 Phosphorus 5.3 H Magnesium 2.4 Total Bilirubin 1.6 H AST 20 D ALT 16 Alkaline Phosphatase 143 H B-Natriuretic Peptide Total Protein 6.6 Albumin 3.5 Urine Opiates Screen Ur Barbiturates Screen Ur Phencyclidine Scrn Ur Amphetamines Screen U Benzodiazepines Scrn Urine Cocaine Screen U Marijuana (THC) Screen 10/18/20 10/18/20 10/18/20 06:04 06:04 06:06 WBC RBC Hgb Hct MCV MCH MCHC RDW Plt Count MPV Immature Gran % (Auto) Neut % (Auto) Lymph % (Auto) Sanborn % (Auto) Eos % (Auto) Baso % (Auto) Lymph # (Auto) Sanborn # (Auto) Eos # (Auto) Baso # (Auto) Abs Immat Gran (auto) Absolute Neuts (auto) Absolute Nucleated RBC Nucleated RBC % (auto) VBG pH 7.44 H VBG pCO2 34 VBG pO2 94 VBG HCO3 23 VBG O2 Saturation 99.0 VBG Base Excess 0.5 Sodium 133 L Potassium 3.2 L Chloride 101 Carbon Dioxide 25 Anion Gap 10 L BUN 20 H Creatinine 0.87 Estim Creat Clear Calc 104.5 Estimated GFR > 60 Random Glucose 129 H Calcium 8.5 Phosphorus 2.7 Magnesium 2.0 Total Bilirubin 2.6 H AST 15 ALT 12 Alkaline Phosphatase 141 H B-Natriuretic Peptide 827 H Total Protein 6.6 Albumin 3.4 L Urine Opiates Screen Ur Barbiturates Screen Ur Phencyclidine Scrn Ur Amphetamines Screen U Benzodiazepines Scrn Urine Cocaine Screen U Marijuana (THC) Screen Imaging Radiology Impressions: ITS Impressions Chest X-Ray 10/16/20 10:07 IMPRESSION: Diffuse bilateral patchy opacities in both lower lobes, and frontal region right upper lobe, question developing infiltrates. Mental Status Exam Mental Status Exam Patient Appearance: Unkempt Patient Orientation: Person and Place Level of Consciousness: Awake and Restless Patient Behavior: Passive Mood Description: Anxious Affect Description: Anxious Ability to Follow Directions: Good Speech Pattern: Soft-Spoken Thought Content: positive for [place] Judgement: Fair Medications Medications Current Medications Generic Name Dose Route Start Last Admin Trade Name Freq PRN Reason Stop Dose Admin Acetaminophen 650 mg 10/16/20 14:09 10/18/20 09:20 Acetaminophen 325 Mg Tablet PO 650 mg Q6H PRN Administration Pain, Mild (Pain Scale 1-3) Albuterol/Ipratropium 3 ml 10/16/20 18:00 10/18/20 11:19 Albuterol/Iprat 2.5/0.5mg 3 Ml Ampul.Neb INHALE 3 ml RQ6H LELA Administration Amlodipine Besylate 5 mg 10/17/20 12:45 10/18/20 08:26 Amlodipine Besylate 5 Mg Tablet PO 5 mg DAILY LELA Administration Protocol Atorvastatin Calcium 40 mg 10/17/20 21:00 10/17/20 21:27 Atorvastatin Calcium 40 Mg Tablet PO 40 mg BEDTIME LELA Administration Carvedilol 12.5 mg 10/17/20 12:35 10/18/20 08:25 Carvedilol 12.5 Mg Tablet PO 12.5 mg BID LELA Administration Protocol Furosemide 40 mg 10/18/20 09:00 10/18/20 08:25 Furosemide 40 Mg Tablet PO 40 mg DAILY LELA Administration Protocol Heparin Sodium (Porcine) 5,000 unit 10/16/20 14:00 10/18/20 04:40 Heparin Sodium,Porcine 5,000 Unit/Ml Vial SUBCUT 5,000 unit Q8H LELA Administration Hydralazine HCl 100 mg 10/18/20 09:00 10/18/20 08:24 Hydralazine Hcl 50 Mg Tablet PO 100 mg TID LELA Administration Protocol Tiotropium Manning 2 puff 10/18/20 08:00 10/18/20 08:55 Tiotropium Manning 18 Mcg Cap.W.Dev INHALE 2 puff RDAILY LELA Administration Allergies Allergies Allergy/AdvReac Type Severity Reaction Status Date / Time No Known Allergies Allergy Unverified 01/07/20 16:51 Assessment & Plan Assessment & Plan (1) Opioid use disorder: Status: Acute Code(s): F11.99 - Opioid use, unspecified with unspecified opioid-induced disorder Recommendations: * will restart suboxone at lower dose for now and titrate as appropriate * outpatient records show he is prescribed 8mg BID * will continue to follow Greater than 50% of the session was spent on counseling and/or coordination of care [facility] Past Medical History Medical History Asthma CHF (congestive heart failure) HTN (hypertension) Pneumonia Substance abuse Social History Social History Household Members: None Housing: House Do you presently have visiting nurse or other home services: No Alcohol intake: never Patient Tobacco Use Status: Current everyday Tobacco user Tobacco use type: Cigarette Substance Use Type: Crack/Cocaine, Heroin and Marijuana service: No Current occupational status: unemployed
--- NOTE | 2020-10-18 12:15 | MHC.RECOVRN ---
T/w attempted to check in with pt after receiving Suboxone 2 mg. Pt currently sleeping, appears comfortable. Will continue to follow.
[2020-10-18] MEDS: Buprenorphine/Naloxone 4/1 mg FILM 1 FILM SUBLINGUAL (14:30)
--- NOTE | 2020-10-18 14:41 | P.DS_ITS ---
DS: Providers Provider Date of Service: 10/18/20 Date of admission: 10/16/20 14:08 Primary care physician: Unknown Physician Consults: 10/17/20 17:57 Consult to Cardiology Routine Consulting Provider: Jean Mireles Reason for consultation: diastolic chf, 3 second pause 10/18/20 08:17 Addiction Medicine Routine Consulting Provider: Tamara Brewer Reason for consultation: polysubstance abuse Has provider been notified: No DS: Diagnosis Discharge Diagnosis (1) Opioid use disorder: Status: Acute DS: Medications Discharge Medications Home Medications: Home Medications Medication Instructions Recorded Confirmed albuterol sulfate [ProAir HFA] 2 puff INHALATION QID 10/16/20 10/16/20 amlodipine 1 tab PO QAM 10/16/20 10/16/20 atorvastatin 1 tab PO BEDTIME 10/16/20 10/16/20 buprenorphine-naloxone [Suboxone] 2 strip SUBLINGUAL DAILY 10/16/20 10/16/20 carvedilol 1 tab PO BID 10/16/20 10/16/20 furosemide [Lasix] 3 tab PO DIRECTED 10/16/20 10/16/20 ipratropium-albuterol 1 amp INHALATION QID 10/16/20 10/16/20 tiotropium bromide [Spiriva 2 puff PO DAILY 10/16/20 10/16/20 Respimat] DS: Summary Hospital Course Hospital Course: Chief Complaint: shortness of breath and lower extremity edema 60-year-old gentleman with underlying history of polysubstance abuse including cocaine heparin, congestive heart failure, asthma, hypertension admitted on 10/16/2020 with acute hypoxic respiratory failure and toxic encephalopathy secondary to exacerbation of underlying congestive heart failure and polysubstance abuse. Patient initially required BiPAP support in the emergency room and then was titrated down to high-flow nasal cannula. In the emergency room he was noted to have waxing and waning encephalopathy likely secondary to surreptitious heroin use in ED. He was started on IV diuresis and admitted to intensive care unit. hospital course 60-year-old gentleman admitted with respiratory failure with hypoxia and hypercarbia due to opiate overdose as well as congestive heart failure, was admitted to intensive care unit and was. aggressively diuresed and is > 9 L negative,now appears euvolemic, oxygenation stable on room air, noted to have elevated blood pressure, therefore started on hydralazine 100 mg t.i.d., dose of Norvasc increased to 10 mg daily, patient seen by rn lpn lvn due to congestive heart failure, he recommend to discontinue Lasix and Switch to p.o. Bumex 2 mg daily and add Aldactone 25 mg ,uncontrolled blood pressure may be related to possibly withdrawal, therefore needs to be monitored closely but patient is adamant to be discharged home, patient also seen by maintenance superintendent Dr. Benoit, he ordered further testing to rule out secondary causes of uncontrolled hypertension, but patient wishes to leave hospital, multiple attempts made to convince him to stay in hospital to received treatment for hypertension, hypokalemia and heart failure, patient also seen by Tamara Brewer from [facility] patient started on Suboxone and has been recommended to remain in hospital for further treatment for addiction and withdrawal but he is leaving hospital against medical advice he is aware of the risk of cardiac arrest, fall, , there is no contact numbers available for family, patient gave number of his girlfriend's brother [phone] called the number and left a message , [facility] has been informed about patient's discharge they will call him tomorrow and make sure that he follows up with them. Time Spent with Patient Time attestation: Total time spent providing and/or coordinating discharge services: Discharge coordination time: Greater than 30 minutes Quality: Stroke Does the patient have a stroke diagnosis?: No Physical Exam Vital Signs: Vital Signs: Last Vital Signs Temp 98.1 F 10/18/20 11:25 Pulse 78 10/18/20 14:30 Resp 20 10/18/20 11:25 BP 160/89 H 10/18/20 14:30 Pulse Ox 97 10/18/20 11:25 Body Mass Index 24.0 General: alert and awake, oriented x3 HENMT: normocephalic Neck: supple and no JVD Resp: normal respiratory effort clear to auscultation bilaterally Cardio: regular rate rhythm , normal heart sound present GI: normal bowel sounds , nontender Skin: no rashes or lesions noted Neuro: no focal motor deficits , restless DS: Data Data Completed and Pending Labs on day of discharge: Laboratory Results - last 24 hr 10/18/20 10/18/20 10/18/20 06:04 06:04 06:06 VBG pH 7.44 H VBG pCO2 34 VBG pO2 94 VBG HCO3 23 VBG O2 Saturation 99.0 VBG Base Excess 0.5 Sodium 133 L Potassium 3.2 L Chloride 101 Carbon Dioxide 25 Anion Gap 10 L BUN 20 H Creatinine 0.87 Estim Creat Clear Calc 104.5 Estimated GFR > 60 Random Glucose 129 H Calcium 8.5 Phosphorus 2.7 Magnesium 2.0 Total Bilirubin 2.6 H AST 15 ALT 12 Alkaline Phosphatase 141 H B-Natriuretic Peptide 827 H Total Protein 6.6 Albumin 3.4 L Preliminary micro results at discharge 10/16/20 10:33 Blood Culture - Preliminary Blood - Venous No growth after 48 hours. 10/16/20 10:25 Blood Culture - Preliminary Blood - Venous No growth after 48 hours. Discharge Plan Discharge Patient Disposition: Left Against Medical Advice Discharge Diagnosis: acute hypoxic respiratory failure acute on chronic diastolic congestive heart failure polysubstance abuse alkalosis Referrals: Physician,Unknown [Physician] - 1 Week Discharge Medications: New spironolactone [Aldactone] 25 mg tablet 25 mg PO DAILY Qty: 30 RF: 0 amlodipine 5 mg Tablet 10 mg PO DAILY Qty: 30 RF: 0 hydralazine 50 mg Tablet 100 mg PO TID Qty: 90 RF: 0 bumetanide 2 mg tablet 2 mg PO DAILY Qty: 30 RF: 0 Continued atorvastatin 40 mg tablet 1 tab PO BEDTIME RF: 0 carvedilol 12.5 mg tablet 1 tab PO BID RF: 0 ipratropium-albuterol 0.5 mg-3 mg(2.5 mg base)/3 mL solution for nebulization 1 amp inhalation QID RF: 0 albuterol sulfate [ProAir HFA] 90 mcg/actuation HFA aerosol inhaler 2 puff inhalation QID RF: 0 buprenorphine-naloxone [Suboxone] 8-2 mg film 2 strip sublingual DAILY RF: 0 Spiriva Respimat 2.5 mcg/actuation mist 2 puff PO DAILY RF: 0 Discontinued furosemide [Lasix] 40 mg tablet 3 tab PO DIRECTED RF: 0 amlodipine 5 mg tablet 1 tab PO QAM RF: 0 Discharge Orders: Discharge Order (Routine); Ordered 10/18/20 Ordered By: Earle Pak Diet: advance to usual diet Activity on Discharge: As tolerated Care Plan Goals: close outpatient follow-up with PCP, continue use of Suboxone and take all medications as prescribed Health Concerns: polysubstance abuse, congestive heart failure, uncontrolled hypertension, needs close monitoring of blood pressure needs further workup for high blood pressure needs to be seen by Nephrology for blood pressure control, patient is adamant on leaving hospital against medical advice patient is awake alert has been made aware of risk of leaving hospital due to unsteady gait, uncontrolled blood pressure and pending workup he understands the risk that he can not even fall down if he is not compliant with this medication. Plan of Treatment: strongly recommend to follow up with primary care physician and Cardiology as outpatient in 1 week. Assessment: as above Discharge Date/Time: 10/18/20 16:07
--- NOTE | 2020-10-18 14:48 | MHC.CM.PN ---
Addendum entered by Kaylynn Shipman 10/18/20 14:57: PTS PCP IS JAVIER DAILEY Original Note: PT LEAVING [facility] ([phone]) NOTIFIED AND ASKED TO CONTACT PT REGARDING FOLLOW UP.
[2020-10-18] MEDS: Potassium Chloride ER 20 MEQ TAB.ER.PRT 40 MEQ PO (15:00)
--- NOTE | 2020-10-18 15:15 | PC.NURSE ---
Skin assessment completed on patient today. No skin issues found, skin intact and dry.
--- NOTE | 2020-10-18 16:08 | PC.NURSE ---
Pt left AMA. He removed his monitor and 3 IVs and left the floor by himself. aware and discharged pt. Falguni Hernadez, nurse night shift supervisor, notified.
--- NOTE | 2020-10-19 09:37 | P.EN_ITS ---
Event Note Date of Service: 10/18/20 Event Note: Late entry--Addiction note: Called to see patient as he was stating he wanted to leave the hospital. Provider requesting capacity eval. Patient reporting he just wants to go home. Denies withdrawal sx. Verbalized understanding of risks related to leaving. At time of assessment appeared to have capacity to make medical decision. This headline writer spoke to [facility] addictions nurse (where patient receives care) and updated her regarding patients decision to leave AMA. [facility] will be following up with patient and working to get him into the office to be seen.
[2020-10-25 18:02] LABS: Aldosterone/Renin Ratio 3.7 Ratio (0.9-28.9); Plasma Renin Activity 0.27 ng/mL/h (0.25-5.82)
== END 2020-10-18 16:07 | disposition left against medical advice (07) | DRG 812 ==
LOC: HO.ED 12:37 → HO.EDOVER 14:29 → HO.ICU 14:30 → HO.IMC 10-17 15:07
PROVIDERS: Anesthesiology; Internal Medicine Nephrology; Admitting Provider Internal Medicine Pulmonary Disease; Emergency Provider Emergency Medicine; PCP Internal Medicine; Visit Provider Hospitalist
DX: T40.2X1A Poisoning by other opioids, accidental (unintentional), initial encounter (principal); J96.21 Acute and chronic respiratory failure with hypoxia; E87.3 Alkalosis; I50.33 Acute on chronic diastolic (congestive) heart failure; I11.0 Hypertensive heart disease with heart failure; J45.41 Moderate persistent asthma with (acute) exacerbation; Y92.9 Unspecified place or not applicable; G47.33 Obstructive sleep apnea (adult) (pediatric); F19.139 Other psychoactive substance abuse with withdrawal, unspecified; F17.210 Nicotine dependence, cigarettes, uncomplicated; F19.129 Other psychoactive substance abuse with intoxication, unspecified; Z20.822 Contact with and (suspected) exposure to COVID-19; Z71.6 Tobacco abuse counseling; Z79.899 Other long term (current) drug therapy
CPT/HCPCS: 36415; 71045; 80048; 80053; 80076; 80307; 82088; 83605; 83690; 83735; 83880; 84100; 84484; 85025; 85610; 85730; 87040; 87635; 93005; 93306; 94640; 94644; 94799; 99285; J1940; J2543; J2930; J3370; J3475; P9047